=== PATIENT | male | born 1950 | race Caucasian/White ===

== ENCOUNTER 2018-10-05 08:30 | Inpatient (IN) ==
--- NOTE | 2018-10-05 08:50 | Anesthesia Evaluation PreOp ---
Date of Encounter: 10/05/18 Time of Encounter: 08:48 - Past History Planned Operation: Robotic Lap. [place]. Cardiac History: HTN, Hyperlipidemia Pulmonary History: Smoker BASKETBALL COMMENTATOR History: Other (Schizophrenia) Other Medical History: Denies Any Significant HX Anesthesia History: No Prior Anesthetic Complications, Past Anesthesia (tonsillectomy) Alcohol Use: rarely, occasionally Drug use: marijuana Medications and Allergies Atorvastatin [Lipitor] 40 mg PO HS 08/02/18 [History] Carbamide Peroxide [Ear Drops] 4 drp BOTH EARS AD 08/02/18 [History] Hydrochlorothiazide [Microzide] 12.5 mg PO DAILY 08/02/18 [History] Ketotifen Fumarate [Zaditor] 1 drp BOTH EYES BID 08/02/18 [History] LORazepam [Ativan] 0.5 mg PO DAILY 08/02/18 [History] Perphenazine 16 mg PO BID 08/02/18 [History] RisperiDONE MICROSPHERES [RisperDAL CONSTA] 25 mg IM Q14D 08/02/18 [History] risperiDONE [Risperdal] 2 mg PO HS 08/02/18 [History] Acetaminophen [Tylenol 8 Hour] 650 mg PO Q6H PRN #30 tablet.er 08/03/18 [Rx] Allergy/AdvReac Type Severity Reaction Status Date / Time No Known Allergies Allergy Verified 09/24/18 13:51 - Meds/Allergy Pre-op Review Medications Reviewed: Yes Allergies Reviewed: Yes Beta Blockers on Current Med List: No Anesthesia Results - Labs Laboratory Tests 08/02/18 08/03/18 09/24/18 05:04 04:43 13:51 WBC 5.9 Hgb 13.5 Hct 41.2 Plt Count 257 INR 1.2 Sodium 136 Potassium Chloride 104 Carbon Dioxide 24 BUN 12 Creatinine 09/24/18 13:51 WBC Hgb Hct Plt Count INR Sodium Potassium 4.0 Chloride Carbon Dioxide BUN Creatinine 0.62 L - Imaging EKG: report reviewed ([facility]ADYCARDIA Electronically Signed On 09-25-2018 15:14:07 EDT by Ray Laurent) Anesthesia Exam O2 Sat Height 1.78 m Weight 88.904 kg O2 Sat by Pulse Oximetry 92 Vital Signs Temp Pulse Resp BP Pulse Ox 97.5 F L 72 18 152/90 92 10/05/18 08:51 10/05/18 08:51 10/05/18 08:51 10/05/18 08:51 10/05/18 08:51 NPO (# of Hours): > 8 hrs Pain Scale: 0 Pain Scale Used: Numeric (1 - 10) - HEENT Pupil (Motor): Pupils equal, EOMI Mallampati: III Teeth: Normal Oral Opening: Greater than 3 - BASKETBALL COMMENTATOR LOC: Oriented BASKETBALL COMMENTATOR Motor: Normal RUE, Normal LUE, Normal RLE, Normal LLE, Normal Face BASKETBALL COMMENTATOR Sensory: Normal: RUE, LUE, RLE, LLE, Face - Cardiac Rhythm: Regular Murmur: None JVD: No Carotid Bruit: No - Pulmonary Breath Sounds: bilateral Clear Respiratory Effort: Symmetrical Anesthesia Assess/Plan ASA Score: 2 Level of consciousness: Cooperative Anesthetic Plan: General Autologous Blood: Yes Monitoring Plan: Standard Monitors Recovery Plan: PACU
[2018-10-05] MEDS ORDERED: *HR* OxyCODONE Immed Rel 5 MG TABLET PO PRN (09:07)
[2018-10-05] MEDS ORDERED: *HR* Promethazine 25 MG/ML VIAL IVP PRN (09:07)
[2018-10-05] MEDS ORDERED: Ondansetron 4 MG/2 ML VIAL IVP ONE (09:07)
[2018-10-05] MEDS ORDERED: *HR* Labetalol 20 MG/4 ML SYRINGE IVP PRN (09:07)
[2018-10-05] MEDS ORDERED: *HR* HYDROmorphone (PF) 1 MG/ML SYRINGE IVP PRN (09:07)
[2018-10-05] MEDS ORDERED: Albuterol 2.5 MG/3 ML NEBULIZER IH ONE ×2 (09:07)
[2018-10-05] MEDS ORDERED: cefOXitin 2,000 MG in Water for inj. (sterile) 20 ML 20 ML IVP ONE (09:07)
[2018-10-05] MEDS ORDERED: Ringers Solution, Lactated 1,000 ML IVC SCH (09:15)
[2018-10-05] MEDS ORDERED: *HR* FentaNYL (PF) 100 MCG/2 ML VIAL ONE ×2 (09:47→11:51)
[2018-10-05] MEDS ORDERED: *HR* Propofol 200 MG/20 ML VIAL IVP ONE (09:47)
[2018-10-05] MEDS ORDERED: *HR* Rocuronium Bromide 50 MG/5 ML VIAL ONE ×2 (09:48→13:05)
[2018-10-05] MEDS ORDERED: Dexamethasone 4 MG/ML VIAL ONE ×2 (09:48→13:51)
[2018-10-05] MEDS ORDERED: Ondansetron 4 MG/2 ML VIAL ONE (09:48)
[2018-10-05] MEDS ORDERED: Lidocaine -MPF 2% 2 ML VIAL ONE (09:48)
[2018-10-05] MEDS ORDERED: Neostigmine Methylsulfate 3 MG/3 ML SYRINGE ONE (10:19)
--- NOTE | 2018-10-05 10:44 | General Surg History&Physical ---
Date of Encounter: 10/05/18 Time of Encounter: 10:42 Assessment and Plan (1) Perforation of gallbladder in cholecystitis Current Visit: Yes Status: Acute 68M with perforated cholecystitis s/p cholecystostomy tube; clinically feeling better; okay to proceed with surgery The assessment and plan as outlined above was discussed with the patient and/or family members who expressed understanding and agreement. All questions were answered. History of Present Illness Chief complaint: perforated cholecystitis HPI: Mr. Tang is a 68 year old male who perforated gallbladder s/p cholecystostomy tube placement. He is doing well after without any reports of pain, having normal bowel function and diet. No reports of fevers, chills, nausea, vomiting nor other systemic symptoms Past Med Surg Social Fam HX - Past Medical History Medical history: hypertension, other Additional medical history: cholecystitis, unspecified. smoking CIGARETTES AND CIGARS (STARTED SMOKING AGE OF MID-30'S). DAILY marijuana use. hypercholesterolemia Psychiatric history: schizophrenia - Past Surgical History Surgical History: cholecystectomy, sinus surgery, tonsillectomy Additional surgical history: 10/05/18 [facility] W/JAELYN DRAIN REMOVAL @[facility] W/DR CALDERON - Social History Smoking Status: Current every day smoker Packs per day: 1 Smokeless Tobacco Status: No Alcohol use: none Drug use: marijuana - Family History Mother Living Status: Father Living Status: Medications and Allergies Atorvastatin [Lipitor] 40 mg PO HS 08/02/18 [History] Carbamide Peroxide [Ear Drops] 4 drp BOTH EARS AD 08/02/18 [History] Hydrochlorothiazide [Microzide] 12.5 mg PO DAILY 08/02/18 [History] Ketotifen Fumarate [Zaditor] 1 drp BOTH EYES BID 08/02/18 [History] LORazepam [Ativan] 0.5 mg PO DAILY 08/02/18 [History] Perphenazine 16 mg PO BID 08/02/18 [History] RisperiDONE MICROSPHERES [RisperDAL CONSTA] 25 mg IM Q14D 08/02/18 [History] risperiDONE [Risperdal] 2 mg PO HS 08/02/18 [History] Acetaminophen [Tylenol 8 Hour] 650 mg PO Q6H PRN #30 tablet.er 08/03/18 [Rx] Allergy/AdvReac Type Severity Reaction Status Date / Time No Known Allergies Allergy Verified 10/05/18 09:38 Review of Systems All systems PM: 12 point ROS negative besides HPI findings General Surgery Exam Initial Vital Signs Temp Pulse Resp BP Pulse Ox 97.5 F L 72 18 152/90 92 10/05/18 08:51 10/05/18 08:51 10/05/18 08:51 10/05/18 08:51 10/05/18 08:51 - General physical appearance no distress - Eyes PERRL, normal ocular movement - ENT normocephalic - Neck trachea midline, no lymphadectomy - Respiratory normal expansion, normal respiratory effort - Cardiovascular Cardiovascular exam: Present: RRR - Abdomen Abdomen general surgery: Present: soft, non tender - Integumentary Integumentary general surgery: Present: warm and dry, no abnormal pigmentation - Neurologic Present: CN 2-12 grossly intact - Musculoskeletal Present: normal posture - Psychiatric Psychiatric general surgery: Present: A&Ox3 Results - Labs All other labs normal.
[2018-10-05] MEDS ORDERED: Isovue-300 50 ML VIAL ONE (10:51)
[2018-10-05] MEDS ORDERED: CefOXitin 2,000 MG VIAL ONE ×2 (11:46→13:31)
[2018-10-05] MEDS ORDERED: Acetaminophen IV 1,000 MG/100 ML INFUS..BTL ONE (12:19)
[2018-10-05] MEDS ORDERED: *HR* HYDROMORPHONE 2 MG/ML VIAL ONE (12:36)
[2018-10-05] MEDS ORDERED: ROPIVACAINE/PF/NS SYRINGE INTRAART ONE ×2 (13:18→13:50)
[2018-10-05] MEDS ORDERED: SUGAMMADEX SODIUM 500 MG/5 ML VIAL IV ONE (14:18)
--- NOTE | 2018-10-05 15:00 | Anesthesia Procedures ---
Date of Encounter: 10/05/18 Time of Encounter: 14:30 Procedures: Anesthesia - Nerve Block Procedure Date: 10/05/18 Time: 14:30 Allergies/Adv Reactions: Allergies No Known Allergies Allergy (Verified 10/05/18 09:38) Pre-op Diagnosis: perforated gallbladder Surgical Procedure: open cholecystectomy Checklist: Correct Patient Identifier, Correct procedure, History checked Monitor Applied: EKG, BP, Pulse Oximetry Supplemental Oxygen via Nasal Cannula (L/min): 3 (under general anesthesia) Sedation: Versed (mg): 0 (under general anesthesia see record) Indication: Post Op Analgesia Pre-op Neuro Deficits: No Block Type: Other (bilateral TAP blocks and right subcostal TAP block) Catheter placed: No Sterile Technique: Yes Ultrasound used: Yes Anatomy identified: Yes Visual spread of Local: Yes Blood on Needle Aspiration: No Smooth Injection of Local: Yes Pain with Injection of Local: No Prep: Betadine Needle: 21 x 100 mm Stimuplex Local: Ropivacaine (0.25% 20ml in each site with 4 mg decadron in each) Volume (cc): 60 Number of Attempts: 1 Complications: None/effective block Vitals: see anesthesia record
--- NOTE | 2018-10-05 15:03 | Operative Note ---
Date of procedure: 10/05/18 Pre-op diagnosis: perforated cholecystitis Post-op diagnosis: same Procedure: robotic converted to open cholecystectomy intraoperative cholangiogram Implants: 19fr evelia drain Complications: none Anesthesia: GETA Surgeon: Bandar Lin Was there an residential real estate assistant present: Yes Pea Viner Mechanic: Ann Andre Pea Viner Mechanic Other: kitty villegas Estimated blood loss (cc): 30 Specimen: gallbladder, abscess wall Condition: stable Disposition: PACU Procedure in Detail: The patient was brought into the operating room suite and was placed in the supine position. Mechanical DVT prophylaxis was applied. A time-in was conducted. The patient underwent smooth induction of anesthesia. Preoperative antibiotics were given. The patient was prepped and draped in the usual fashion. A time-out was held identifying the correct patient, pathology, and procedure. Everyone was in agreement and we began the procedure. Incision to Dissection I started by creating a 12mm supraumbilical incision. Via open Carmina technique I did enter into the abdomen. I inserted the 12mm trocar followed by the 30 degree camera, ensured that I did not cause intraabdominal injury upon entry, and quickly identified the gallbladder. I created a 5mm incisions one handbreadth to the left and right of the umbilical incision and an residential real estate assistant port along the R anterior axillary line. I then docked the robot in the usual fashion. Using laparoscopic graspers I managed to elevate the gallbladder above the liver. At the Console I grasp the edge of the gallbladder to retract laterally. It should be stated that there was significant inflammation. The cholecystostomy tube was dislodged and discovered to be so before operating, likely before arrival for surgery. The omentum, hepatic flexure and the duodenum were heavily involved and there was a significant amount of time (at least 30 minutes) dedicated to lysing adhesions. All planes were obliterated and the tissue was very friable, so there was a lot of blood obscuring my view. During my dissection, I saw what I believed to be the infundibulum. Directly abutting it appeared to be the common bile but with no obvious plane to separate the two. I created an incision on the gallbladder wall above what was believed to be infundibulum. I attempted a cholangiogram through it, but was unable to get contrast to flow in the correct direction. My cholangiogram was not helpful. The decision was made at this point to convert to open. Open I created an incision 2 fingerbreadths below the right costal margin, dissected through the subcutaneous layer, through the fascia, muscles, and posterior fascia until i entered the abdomen. I then placed the book darell self retained and the associated retractors. I utilized the top down approach to dissect the gallbladder off the liver bed. I entered into the lumen (again the planes were obliterated) and used my finger to palpate. what was clear with exam was that 1.) I did correctly identify the infundibulum and 2.) that was the common bile duct directly abutting it. I was able to create a plane, but with very little space. I decided to staple across the infundibulum. However, with a little more dissection i was able to dissect the rind off of the gallbplladder and identify the cystic duct. This structure was ligated and the specimen rem rohit. I then placed surgiseal in the surgial bed, placed a 19fr evelia drain within the gallbladder fossa and anchored it to the skin, i irrigated the abdomen, and closed the abdomen using looped PDS. I used vicryl to close the subcutaneous tissue and angela for the skin. the patient tolerated the procedure well and was escorted to PACu in stable condition.
--- NOTE | 2018-10-05 16:23 | Anesthesia Evaluation Post Op ---
Date of Encounter: 10/05/18 Time of Encounter: 16:22 - Vital Signs Vital Signs: Vital Signs/O2 Sat, Most Current Temp Pulse Resp BP Pulse Ox 98.0 F 63 16 165/88 94 10/05/18 15:46 10/05/18 16:06 10/05/18 16:06 10/05/18 16:06 10/05/18 16:06 - Lungs Lungs: Clear Ascult./Percussion - Airway Airway: Non-obstructed - Cardiovascular Regular Rate - Mental Status Mental Status: Alert & Oriented, Answers Appropriately, Asleep with brisk response to light stimulation - Pain Pain Scale used: Numeric (1 - 10) (tolerale) - Nausea Vomiting Nausea Vomiting: Not Present - Hydration Hydration: Tolerates oral liquids - Discharge PostOp Status: Transfer Patient to floor
[2018-10-05] MEDS ORDERED: Ondansetron 4 MG/2 ML VIAL IVP PRN (17:27)
[2018-10-05] MEDS: risperiDONE 1 MG TABLET PO SCH (21:30)
[2018-10-05] MEDS: KETOTIFEN FUMARATE OP SCH (21:30)
[2018-10-05] MEDS: Perphenazine 8 MG TABLET PO SCH (21:30)
[2018-10-05] MEDS: Ringers Solution, Lactated 1,000 ML IVC SCH (22:56)
[2018-10-06 02:44] LABS: Basophils % 0.1 %; Hematocrit 39.1 % (37.5-50.1); Hemoglobin 13.1 g/dL (12.9-16.9); Immature Granulocytes % 0.5 % (0-4); Lymphocytes # 0.5 K/mcL (0.6-4.6); Lymphocytes % 3.8 %; Mean Corpuscular HGB Conc 33.5 g/dL (31.6-35.5); Mean Corpuscular Hemoglobin 28.2 pg (28.0-33.3); Mean Corpuscular Volume 84.3 fL (83.0-100.0); Mean Platelet Volume 10.1 fL (9.4-12.4); Monocytes # 0.5 K/mcL (0.0-1.3); Neutrophils # 10.9 K/mcL (1.6-8.9); Platelet Count 202 K/mcL (140-400); Red Blood Count 4.64 M/mcL (4.19-5.50); Red Cell Distribution Width 13.7 % (11.5-14.5); Segmented Neutrophils % 91.6 %
[2018-10-06] MEDS: *HR* Enoxaparin 40 MG/0.4 ML SYRINGE SQ SCH (05:04)
[2018-10-06] MEDS: *HR* LORazepam 0.5 MG TABLET PO SCH (07:44)
[2018-10-06] MEDS: Perphenazine 8 MG TABLET PO SCH ×2 (07:44→20:43)
[2018-10-06] MEDS: Ringers Solution, Lactated 1,000 ML IVC SCH ×2 (07:44→16:03)
[2018-10-06] MEDS: hydroCHLOROthiazide 25 MG TABLET PO SCH (07:44)
[2018-10-06] MEDS ORDERED: Carbamide Peroxide 150 DROP/15 ML BOTTLE BOTH EARS PRN (09:00)
--- NOTE | 2018-10-06 11:56 | AcuteCareSurgery Progress Note ---
<Alfie Carreon N - Last Filed: 10/06/18 12:11> Date of Encounter: 10/06/18 Time of Encounter: 10:15 - Assessment and Plan (1) Perforation of gallbladder in cholecystitis Current Visit: Yes Status: Acute 68-year-old male with history of perforated cholecystitis with cholecystostomy tube who is POD #1 from robotic cholecystectomy which was converted to open -Continue clear liquid diet today -Pain management with sublingual oxycodone and sublingual morphine -IV fluids -Zofran for nausea -Encourage incentive spirometry and out of bed to chair -Daily bandage changes and JAELYN drain care Subjective Narrative: 68-year-old male admitted to the hospital with perforated cholecystitis and is status post day 1 from robotic cholecystectomy which was converted to open. Patient complains of abdominal pain in the right upper quadrant that is slightly improved from yesterday. Objective Vital Signs - Last 8 Hours Temp Pulse Resp BP Pulse Ox 10/06/18 10:30 98.0 F 58 18 137/67 95 10/06/18 07:04 98.0 F 83 16 138/68 98 10/06/18 05:49 95 10/06/18 04:17 131/66 Intake and Output 10/05/18 10/06/18 10/06/18 23:59 07:59 15:59 Intake Total 1450 / 1470 2100 / 2700 600 / 2700 Output Total 320 / 350 300 / 740 440 / 740 Balance 1130 / 1120 1800 / 1960 160 / 1960 Intake: IV Fluids 1000 / 1020 1000 / 1000 Lactated Ringers 1,000 ML @ 100 1000 / 1000 1000 / 1000 mls/hr IVC .Q10H [facility] Rx#: [id number] Oral 450 / 450 1100 / 1700 600 / 1700 Output: Urine 300 / 300 300 / 700 400 / 700 Wound Drainage 20 / 20 0 / 40 40 / 40 Right LQ 20 / 20 0 / 40 40 / 40 Other: Meal BREAKFAST CLEAR Percent of Meal Consumed 0% Weight 97 kg Blood Glucose* 118 123 125 Patient Weight 10/06/18 23:59 Weight 97 kg - General physical appearance well developed, well nourished - Eyes PERRL, normal ocular movement - ENT normal pinna, normal nares - Neck Neck exam: trachea midline, no venous distension - Respiratory normal expansion, normal respiratory effort - Cardiovascular Cardiovascular exam: Present: RRR - Abdomen Abdomen: Present: tender Abdominal Tenderness: RUQ Additional Comments: Surgical incision site is bandaged and there is appropriate post surgical tenderness. JAELYN drain in place draining sanguinous material. - Labs 10/06/18 01:21 Consult Discharge Plan - Plan Referrals: Cata Houston, BABY REGISTRY SALES CONSULTANT [Advanced Practice Nurse] - 10/19/18 10:00 am [facility] Provider[facility] - <José Luis Chung Michelle - Last Filed: 10/07/18 06:30> Date of Encounter: 10/06/18 Objective Vital Signs - Last 8 Hours Temp Pulse Resp BP Pulse Ox 10/07/18 05:11 98.1 F 68 16 167/71 93 10/07/18 03:04 98.0 F 69 18 175/72 93 Intake and Output 10/06/18 10/06/18 10/07/18 15:59 23:59 07:59 Intake Total 1120 / 4220 1000 / 4220 960 / 960 Output Total 970 / 2640 1370 / 2640 350 / 350 Balance 150 / 1580 -370 / 1580 610 / 610 Intake: IV Fluids 1000 / 2000 960 / 960 Lactated Ringers 1,000 ML @ 100 1000 / 2000 960 / 960 mls/hr IVC .Q10H [facility] Rx#: [id number] Oral 1120 / 2220 0 / 0 Output: Urine 860 / 2510 1350 / 2510 350 / 350 Wound Drainage 110 / 130 20 / 130 0 / 0 Right LQ 110 / 130 20 / 130 0 / 0 Other: Meal BREAKFAST CLEAR Percent of Meal Consumed 0% Weight 98.2 kg Blood Glucose* 125 98 Patient Weight 10/07/18 23:59 Weight 98.2 kg - Labs 10/06/18 01:21 - Attending Attestation I examined this patient and my medical decision-making was reviewed with the Resident Physician. I agree with the documented findings, disposition and treatment plan as described except to the extent set forth below. I reviewed the above assessment and evaluation and agree with the above plan.
[2018-10-06] MEDS ORDERED: MORPHINE SUL Oral CONC 10 MG/0.5 ML ORAL.SYG SL PRN (12:03)
[2018-10-06] MEDS: KETOTIFEN FUMARATE OP SCH ×2 (16:03→20:45)
[2018-10-06] MEDS: risperiDONE 1 MG TABLET PO SCH (20:44)
[2018-10-06] MEDS: OXYCODONE Oral CONC 10 MG/0.5 ML ORAL.SYG SL PRN (20:44)
[2018-10-07] MEDS: OXYCODONE Oral CONC 10 MG/0.5 ML ORAL.SYG SL PRN ×2 (03:25→21:19)
[2018-10-07] MEDS: Ringers Solution, Lactated 1,000 ML IVC SCH (03:26)
[2018-10-07] MEDS: *HR* Enoxaparin 40 MG/0.4 ML SYRINGE SQ SCH (05:16)
[2018-10-07] MEDS: hydroCHLOROthiazide 25 MG TABLET PO SCH (07:44)
[2018-10-07] MEDS: *HR* LORazepam 0.5 MG TABLET PO SCH (07:45)
[2018-10-07] MEDS: KETOTIFEN FUMARATE OP SCH ×2 (07:45→21:19)
[2018-10-07] MEDS: Perphenazine 8 MG TABLET PO SCH ×2 (07:45→21:18)
[2018-10-07 10:03] LABS: Basophils % 0.2 %; Hematocrit 39.1 % (37.5-50.1); Hemoglobin 12.9 g/dL (12.9-16.9); Immature Granulocytes % 0.4 % (0-4); Lymphocytes # 0.9 K/mcL (0.6-4.6); Lymphocytes % 7.3 %; Mean Corpuscular Hemoglobin 28.2 pg (28.0-33.3); Mean Corpuscular Volume 85.6 fL (83.0-100.0); Mean Platelet Volume 9.7 fL (9.4-12.4); Monocytes # 0.9 K/mcL (0.0-1.3); Monocytes % 7.8 %; Neutrophils # 9.8 K/mcL (1.6-8.9); Platelet Count 177 K/mcL (140-400); Red Blood Count 4.57 M/mcL (4.19-5.50); Red Cell Distribution Width 13.8 % (11.5-14.5); Segmented Neutrophils % 84.3 %
[2018-10-07 10:16] LABS: Alanine Aminotransferase 15 Units/L (7-52); Albumin 3.7 g/dL (3.5-5.7); Albumin/Globulin Ratio 1.7 (1.1-2.2); Alkaline Phosphatase 43 Units/L (34-104); Aspartate Amino Transferase 24 Units/L (13-39); BUN/Creatinine Ratio 17 (6-26); Bilirubin,Total 0.7 mg/dL (0.3-1.0); Blood Urea Nitrogen 11 mg/dL (8-23); Calcium 8.8 mg/dL (8.6-10.3); Carbon Dioxide 23 mEq/L (23-29); Chloride 97 mEq/L (98-107); Globulin 2.2 g/dL (2.4-3.5); Glucose 173 mg/dL (70-105); Osmolality,Calculated 280 (280-300); Potassium 3.4 mEq/L (3.5-5.1); Sodium 133 mEq/L (136-145); Total Protein 5.9 g/dL (6.4-8.9); eGFR For Non-African Americans > 60 (> 60)
--- NOTE | 2018-10-07 10:48 | AcuteCareSurgery Progress Note ---
<Alfie Carreon N - Last Filed: 10/07/18 14:09> Date of Encounter: 10/07/18 Time of Encounter: 10:46 - Assessment and Plan (1) Perforation of gallbladder in cholecystitis Current Visit: Yes Status: Acute 68-year-old male POD #2 from robotic and open cholecystectomy for perforated gallbladder and cholecystitis -Advanced diet to full liquids -Pain management with sublingual oxycodone and sublingual morphine -Zofran for nausea -Encourage incentive spirometry and out of bed to chair -Daily bandage changes and JAELYN drain care -PT/OT consult placed (2) Pneumonia Current Visit: Yes Status: Acute -Patient has a progressively worsening nonproductive cough -O2 demand slightly increased -Has mild leukocytosis, but otherwise hemodynamically stable -Obtained chest x-ray with findings significant for airspace opacity at the right lung base, likely related to pneumonia -Obtained blood cultures -We will consult medical team for recommendations -Consult respiratory for pulmonary toilet Qualifiers: Pneumonia type: due to unspecified organism Laterality: right Lung location: lower lobe of lung Qualified Code(s): J18.1 - Lobar pneumonia, unspecified organism Subjective Narrative: Patient seen and examined at bedside this morning. He is status POD #2 from robotic and open cholecystectomy. Complains of a cough that is nonproductive and has coarse breath sounds on exam. Objective Vital Signs - Last 8 Hours Temp Pulse Resp BP Pulse Ox 10/07/18 07:19 98.6 F 72 18 153/70 90 10/07/18 05:11 98.1 F 68 16 167/71 93 10/07/18 03:04 98.0 F 69 18 175/72 93 Intake and Output 10/06/18 10/07/18 10/07/18 23:59 07:59 15:59 Intake Total 1000 / 4220 960 / 960 Output Total 1370 / 2640 720 / 720 Balance -370 / 1580 240 / 240 Intake: IV Fluids 1000 / 2000 960 / 960 Lactated Ringers 1,000 ML @ 100 1000 / 2000 960 / 960 mls/hr IVC .Q10H [facility] Rx#: [id number] Oral 0 / 0 Output: Urine 1350 / 2510 700 / 700 Wound Drainage 20 / 130 20 / 20 Right LQ 20 / 130 20 / 20 Other: Weight 98.2 kg Blood Glucose* 98 119 Patient Weight 10/07/18 23:59 Weight 98.2 kg - General physical appearance well developed, well nourished - Eyes PERRL, normal ocular movement - ENT normal pinna, normal nares - Neck Neck exam: trachea midline, no venous distension - Respiratory other (Coarse rhonchorous breath sounds) - Cardiovascular Cardiovascular exam: Present: RRR. Absent: murmurs - Abdomen Abdomen: Present: bowel sounds present, tender (Appropriate postsurgical tenderness. JAELYN drain in place draining sanguinous fluid.) - Labs 10/07/18 09:46 10/07/18 09:46 Diabetes panel 10/07/18 Range/Units 09:46 Sodium 133 L (136-145) mEq/L Potassium 3.4 L (3.5-5.1) mEq/L Chloride 97 L (98-107) mEq/L Carbon Dioxide 23 (23-29) mEq/L BUN 11 (8-23) mg/dL Creatinine 0.65 L (0.70-1.30) mg/dL Glucose 173 H (70-105) mg/dL Calcium 8.8 (8.6-10.3) mg/dL AST 24 (13-39) Units/L ALT 15 (7-52) Units/L Alkaline Phosphatase 43 (34-104) Units/L Albumin 3.7 (3.5-5.7) g/dL Calcium panel 10/07/18 Range/Units 09:46 Calcium 8.8 (8.6-10.3) mg/dL Albumin 3.7 (3.5-5.7) g/dL Pituitary panel 10/07/18 Range/Units 09:46 Sodium 133 L (136-145) mEq/L Potassium 3.4 L (3.5-5.1) mEq/L Chloride 97 L (98-107) mEq/L Carbon Dioxide 23 (23-29) mEq/L BUN 11 (8-23) mg/dL Creatinine 0.65 L (0.70-1.30) mg/dL Glucose 173 H (70-105) mg/dL Calcium 8.8 (8.6-10.3) mg/dL Adrenal panel 10/07/18 Range/Units 09:46 Sodium 133 L (136-145) mEq/L Potassium 3.4 L (3.5-5.1) mEq/L Chloride 97 L (98-107) mEq/L Carbon Dioxide 23 (23-29) mEq/L BUN 11 (8-23) mg/dL Creatinine 0.65 L (0.70-1.30) mg/dL Glucose 173 H (70-105) mg/dL Calcium 8.8 (8.6-10.3) mg/dL Total Bilirubin 0.7 (0.3-1.0) mg/dL AST 24 (13-39) Units/L ALT 15 (7-52) Units/L Alkaline Phosphatase 43 (34-104) Units/L Albumin 3.7 (3.5-5.7) g/dL Consult Discharge Plan - Plan Referrals: Cata Houston, BUSINESS PROJECT MANAGER [Advanced Practice Nurse] - 10/19/18 10:00 am [facility] - <José Luis Chung - Last Filed: 10/07/18 18:36> Date of Encounter: 10/07/18 Objective Vital Signs - Last 8 Hours Temp Pulse Resp BP Pulse Ox 10/07/18 17:05 98.5 F 10/07/18 12:38 98.9 F 67 19 163/66 94 Intake and Output 10/07/18 10/07/18 10/07/18 07:59 15:59 23:59 Intake Total 960 / 1040 80 / 1040 Output Total 720 / 985 265 / 985 Balance 240 / 55 -185 / 55 Intake: IV Fluids 960 / 960 Lactated Ringers 1,000 ML @ 100 960 / 960 mls/hr IVC .Q10H [facility] Rx#: [id number] Oral 0 / 80 80 / 80 Output: Urine 700 / 950 250 / 950 Wound Drainage 15 Right LQ Other: Meal Lunch # Bowel Movements 0 Weight 98.2 kg Blood Glucose* 119 109 113 Patient Weight 10/07/18 23:59 Weight 98.2 kg - Labs 10/07/18 09:46 10/07/18 09:46 Diabetes panel 10/07/18 Range/Units 09:46 Sodium 133 L (136-145) mEq/L Potassium 3.4 L (3.5-5.1) mEq/L Chloride 97 L (98-107) mEq/L Carbon Dioxide 23 (23-29) mEq/L BUN 11 (8-23) mg/dL Creatinine 0.65 L (0.70-1.30) mg/dL Glucose 173 H (70-105) mg/dL Calcium 8.8 (8.6-10.3) mg/dL AST 24 (13-39) Units/L ALT 15 (7-52) Units/L Alkaline Phosphatase 43 (34-104) Units/L Albumin 3.7 (3.5-5.7) g/dL Calcium panel 10/07/18 Range/Units 09:46 Calcium 8.8 (8.6-10.3) mg/dL Albumin 3.7 (3.5-5.7) g/dL Pituitary panel 10/07/18 Range/Units 09:46 Sodium 133 L (136-145) mEq/L Potassium 3.4 L (3.5-5.1) mEq/L Chloride 97 L (98-107) mEq/L Carbon Dioxide 23 (23-29) mEq/L BUN 11 (8-23) mg/dL Creatinine 0.65 L (0.70-1.30) mg/dL Glucose 173 H (70-105) mg/dL Calcium 8.8 (8.6-10.3) mg/dL Adrenal panel 10/07/18 Range/Units 09:46 Sodium 133 L (136-145) mEq/L Potassium 3.4 L (3.5-5.1) mEq/L Chloride 97 L (98-107) mEq/L Carbon Dioxide 23 (23-29) mEq/L BUN 11 (8-23) mg/dL Creatinine 0.65 L (0.70-1.30) mg/dL Glucose 173 H (70-105) mg/dL Calcium 8.8 (8.6-10.3) mg/dL Total Bilirubin 0.7 (0.3-1.0) mg/dL AST 24 (13-39) Units/L ALT 15 (7-52) Units/L Alkaline Phosphatase 43 (34-104) Units/L Albumin 3.7 (3.5-5.7) g/dL - Attending Attestation I examined this patient and my medical decision-making was reviewed with the Resident Physician. I agree with the documented findings, disposition and treatment plan as described except to the extent set forth below. I personally reviewed the above mentioned assessment and evaluation and agree with the above plan. Will encourage out of bed to chair. Will advance to full liquids. Consult hospitalist due to concern regarding pneumonia and recommendations for antibiotics. Await return of bowel function.
[2018-10-07] MEDS ORDERED: Azithromycin 500 MG in D5% in Water 250 ML IVPB SCH (12:00)
--- NOTE | 2018-10-07 12:10 | Internal Medicine Consult Note ---
Date of Encounter: 10/07/18 Time of Encounter: 12:14 - Assessment and Plan (1) Pneumonia Current Visit: Yes Status: Acute Assessment and plan: of unknown organism. 10/07/18 CXR inserting for RLL pneumonia. Concern for healthcare associated as he has been in the hospital for over 48 hours however able to ascertain if he possibly had underlying pneumonia at time of admission. Start IV ceftriaxone and azithromycin. Respiratory PCR and urinary antigens pending. Qualifiers: Pneumonia type: due to unspecified organism Laterality: right Lung location: lower lobe of lung Qualified Code(s): J18.1 - Lobar pneumonia, un specified organism (2) Perforation of gallbladder in cholecystitis Current Visit: Yes Status: Acute Assessment and plan: s/p robotic and open cholecystectomy for perforated gallbladder and cholecystitis on 10/05/[address] Calderon. Management per primary including pain control, diet and DVT prophylaxis (3) HTN (hypertension) Current Visit: Yes Status: Acute Assessment and plan: per hx. BP variable. Elevated at times, possibly secondary to acute pain. Continue home BP medication. Add PRN IV hydralazine Qualifiers: Hypertension type: essential hypertension Qualified Code(s): I10 - Essential (primary) hypertension (4) Schizophrenia Current Visit: No Status: Chronic Assessment and plan: per hx. symptoms appear to be controlled. Continue home medication regimen. Qualifiers: Schizophrenia type: unspecified Qualified Code(s): F20.9 - Schizophrenia, unspecified (5) DVT prophylaxis Current Visit: No Status: Acute Assessment and plan: lovenox - Time Spent With Patient Total time spent is greater than 50% in coordination of care (as documented) at patient's floor/unit and/or counseling patient: Internal Medicine - CN: HPI - Data of Consult Consult date: 10/07/18 Requesting Physician: Bandar Calderon MD - Consult Narrative Reason for consult: Medical management, pneumonia History of present illness: Mr. Tang is a 68 year old male with PMH schizophrenia and cholecystitis s/p robotic cholecystectomy which was converted to open on 10/04/18. Angelye was consulted for medical management of newly discovered pneumonia. Information obtained from chart review and patient report. He is sleepy and drowsy and bed and says he does not feel well. He does have a nonproductive cough. Feels a little short of breath that time. No fevers or chills that he is aware of. No sick contacts. He does have some abdominal discomfort secondary to surgical incisions. Past Med Surg Social Fam HX - Past Medical History Medical history: hypertension, other Additional medical history: cholecystitis, unspecified. smoking CIGARETTES AND CIGARS (STARTED SMOKING AGE OF MID-30'S). DAILY marijuana use. hypercholesterolemia Psychiatric history: schizophrenia - Past Surgical History Surgical History: cholecystectomy, sinus surgery, tonsillectomy Additional surgical history: 10/05/18 [facility] W/JAELYN DRAIN REMOVAL @[facility] W/DR CALDERON - Social History Smoking Status: Current every day smoker Packs per day: 1 Smokeless Tobacco Status: No Alcohol use: none Drug use: marijuana - Family History Mother Living Status: Father Living Status: All systems: reviewed and no additional remarkable complaints except as stated (A 12 point review of system was completed and negative unless otherwise noted in history of present illness) Internal Medicine - CN: Meds Atorvastatin [Lipitor] 40 mg PO HS 08/02/18 [History] Carbamide Peroxide [Ear Drops] 4 drp BOTH EARS AD 08/02/18 [History] Hydrochlorothiazide [Microzide] 12.5 mg PO DAILY 08/02/18 [History] Ketotifen Fumarate [Zaditor] 1 drp BOTH EYES BID 08/02/18 [History] LORazepam [Ativan] 0.5 mg PO DAILY 08/02/18 [History] Perphenazine 16 mg PO BID 08/02/18 [History] RisperiDONE MICROSPHERES [RisperDAL CONSTA] 25 mg IM Q14D 08/02/18 [History] risperiDONE [Risperdal] 2 mg PO HS 08/02/18 [History] Acetaminophen [Tylenol 8 Hour] 650 mg PO Q6H PRN #30 tablet.er 08/03/18 [Rx] Allergy/AdvReac Type Severity Reaction Status Date / Time No Known Allergies Allergy Verified 10/05/18 09:38 Hospitalist - CN: Exam - Constitutional Vitals: Temp Pulse Resp BP Pulse Ox 98.6 F 72 18 153/70 90 10/07/18 07:19 10/07/18 07:19 10/07/18 07:19 10/07/18 07:19 10/07/18 07:19 General appearance IM: Present: mild distress, A&O X 3 Exam: . - Head Head exam: Present: atraumatic, normal inspection, normocephalic - Eye Eye exam: Present: EOMI, normal appearance, PERRL - ENT ENT exam: Present: mucous membranes moist, normal exam, normal external ear exam, normal oropharynx - Neck Neck exam general surgery: Present: full ROM, normal inspection - Respiratory Respiratory exam: Present: rales, rhonchi - Cardiovascular Cardiovascular exam IM: Present: RRR - GI/Abdominal GI/Abdominal exam IM: Present: diminished bowel sounds, tenderness Additional comments: s/p cholecystectomy site with dressings clean, dry, intact. - exam: Present: normal inspection - Extremities Exam Extremities exam IM: Present: full ROM, normal inspection - Expanded Lower Extremities Exam Hip exam: Present: full ROM - Back Exam Back exam: Present: full ROM - Neurological Exam Neurological exam: Present: CN II-XII intact, oriented X3 Internal Medicine - CN: Reslt - Labs CBC & Chem 7: 10/07/18 09:46 10/07/18 09:46 Labs: Short CBC 10/07/18 Range/Units 09:46 WBC 11.7 H (4.3-11.1) K/mcL Hgb 12.9 (12.9-16.9) g/dL Hct 39.1 (37.5-50.1) % Plt Count 177 (140-400) K/mcL Neutrophils # 9.8 H (1.6-8.9) K/mcL BMP 10/07/18 09:46 Sodium 133 L Potassium 3.4 L Chloride 97 L Carbon Dioxide 23 BUN 11 Creatinine 0.65 L Glucose 173 H Calcium 8.8 Liver Function 10/07/18 Range/Units 09:46 Total Bilirubin 0.7 (0.3-1.0) mg/dL AST 24 (13-39) Units/L ALT 15 (7-52) Units/L Alkaline Phosphatase 43 (34-104) Units/L Albumin 3.7 (3.5-5.7) g/dL - Impressions Impressions Chest X-Ray 10/07/18 07:40 IMPRESSION: Airspace opacity at the right lung base, likely related to pneumonia. D/ / Neptali Domingo MD / Neptali Domingo MD Interpreting Provider: Neptali Domingo MD Consult Discharge Plan - Plan Referrals: Cata Houston, SHANE [Advanced Practice Nurse] - 10/19/18 10:00 am [facility] [[facility] Care Provider[facility] -
[2018-10-07] MEDS: cefTRIAXone 1,000 MG in Water for inj. (sterile) 20 ML 10 ML IVP SCH (12:45)
[2018-10-07 16:17] LABS: Adenovirus Not Detected (Not Detect); Bordetella Pertussis Not Detected (Not Detect); Chlamydophila pneumoniae Not Detected (Not Detect); Coronavirus 229E Not Detected (Not Detect); Coronavirus HKU1 Not Detected (Not Detect); Coronavirus NL63 Not Detected (Not Detect); Coronavirus OC43 Not Detected (Not Detect); Human Metapneumovirus Not Detected (Not Detect); Human Rhinovirus/Enterovirus Not Detected (Not Detect); Influenza A Subtype 2009 H1 Not Detected (Not Detect); Influenza A Untypeable Not Detected (Not Detect); Influenza B Not Detected (Not Detect); Mycoplasma pneumoniae Not Detected (Not Detect); Parainfluenza Virus 1 Not Detected (Not Detect); Parainfluenza Virus 2 Not Detected (Not Detect); Parainfluenza Virus 3 Not Detected (Not Detect); Parainfluenza Virus 4 Not Detected (Not Detect); Respiratory Syncytial Virus Not Detected (Not Detect)
[2018-10-07] MEDS: risperiDONE 1 MG TABLET PO SCH (21:18)
[2018-10-08] MEDS: *HR* Enoxaparin 40 MG/0.4 ML SYRINGE SQ SCH (05:32)
[2018-10-08] MEDS: OXYCODONE Oral CONC 10 MG/0.5 ML ORAL.SYG SL PRN ×2 (05:33→08:07)
[2018-10-08 05:44] LABS: Hematocrit 34.5 % (37.5-50.1); Hemoglobin 11.5 g/dL (12.9-16.9); Mean Corpuscular HGB Conc 33.3 g/dL (31.6-35.5); Mean Corpuscular Hemoglobin 28.2 pg (28.0-33.3); Mean Corpuscular Volume 84.6 fL (83.0-100.0); Mean Platelet Volume 10.4 fL (9.4-12.4); Platelet Count 168 K/mcL (140-400); Red Blood Count 4.08 M/mcL (4.19-5.50); Red Cell Distribution Width 13.6 % (11.5-14.5)
[2018-10-08 06:05] LABS: Alanine Aminotransferase 12 Units/L (7-52); Albumin 3.2 g/dL (3.5-5.7); Albumin/Globulin Ratio 1.5 (1.1-2.2); Alkaline Phosphatase 43 Units/L (34-104); Aspartate Amino Transferase 16 Units/L (13-39); BUN/Creatinine Ratio 18 (6-26); Bilirubin,Total 1.1 mg/dL (0.3-1.0); Blood Urea Nitrogen 10 mg/dL (8-23); Calcium 8.6 mg/dL (8.6-10.3); Carbon Dioxide 29 mEq/L (23-29); Chloride 99 mEq/L (98-107); Globulin 2.2 g/dL (2.4-3.5); Glucose 114 mg/dL (70-105); Osmolality,Calculated 280 (280-300); Potassium 3.5 mEq/L (3.5-5.1); Sodium 135 mEq/L (136-145); Total Protein 5.4 g/dL (6.4-8.9); eGFR For Non-African Americans > 60 (> 60)
[2018-10-08] MEDS: cefTRIAXone 1,000 MG in Water for inj. (sterile) 20 ML 10 ML IVP SCH (08:07)
[2018-10-08] MEDS: hydroCHLOROthiazide 25 MG TABLET PO SCH (08:07)
[2018-10-08] MEDS: *HR* LORazepam 0.5 MG TABLET PO SCH (08:07)
[2018-10-08] MEDS: KETOTIFEN FUMARATE OP SCH (08:09)
[2018-10-08] MEDS: Perphenazine 8 MG TABLET PO SCH ×2 (08:11→20:34)
--- NOTE | 2018-10-08 08:20 | General Surgery Progress Note ---
Date of Encounter: 10/08/18 Time of Encounter: 08:17 - Assessment and Plan (1) Perforation of gallbladder in cholecystitis Current Visit: Yes Status: Acute 68M pMH significant for HTN, psychiatric disorders who is now POD #3 s/p robotic converted to open cholecystectomy with IOC; non septic; HDS; tolerating FLD, pain controlled; now with pneumonia ADAT to reg diet cont with oxy for pain, added flexeril TID pulm toileting; appreciate recs from hospitalist; plan for CXR in AM of 10/09 OOBTC, IS usage cont with JAELYN drain cont home meds cont DVT prophylaxis Subjective Patient reports: no new complaints, feels better, still having pain, pain is less, tolerating liquids well, flatus, no bowel movement, afebrile Objective Vital Signs - Last 8 Hours Temp Pulse Resp BP Pulse Ox 10/08/18 07:47 93 10/08/18 07:08 98 F 65 20 163/83 93 10/08/18 03:46 98.8 F 66 18 154/63 91 Intake and Output 10/07/18 10/08/18 10/08/18 23:59 07:59 15:59 Intake Total 300 / 1340 1260 / 1270 10 / 1270 Output Total 410 / 1395 455 / 455 Balance -110 / -55 805 / 815 10 / 815 Intake: IV Fluids 1260 / 1270 10 / 1270 Lactated Ringers 1,000 ML @ 100 1000 / 1000 mls/hr IVC .Q10H [facility] Rx#: [id number] Rocephin 1,000 MG In Water for inj. (sterile) 10 ML @ 600 mls/ hr IVP DAILY [facility] Rx#:[id number] Zithromax 500 mg In Dextrose 5% 250 / 250 250 ML @ 252 mls/hr IVPB Q24H [facility] Rx#:[id number] Oral 300 / 380 Output: Urine 400 / 1350 450 / 450 Wound Drainage Right LQ Other: Meal Dinner Percent of Meal Consumed 85% Weight 98.1 kg Blood Glucose* 139 107 Patient Weight 10/08/18 23:59 Weight 98.1 kg - General physical appearance no distress - Respiratory normal expansion, normal respiratory effort - Cardiovascular Cardiovascular exam: Present: RRR - Abdomen Abdomen: Present: soft, tender (appropriately tender; non peritoneal) - Incision Incision: Present: clean and dry, intact - Neurologic CN 2-12 grossly intact - Psychiatric oriented to time, oriented to person, oriented to place - Labs 10/08/18 04:47 10/08/18 04:47 Diabetes panel 10/07/18 10/08/18 Range/Units 09:46 04:47 Sodium 133 L 135 L (136-145) mEq/L Potassium 3.4 L 3.5 (3.5-5.1) mEq/L Chloride 97 L 99 (98-107) mEq/L Carbon Dioxide 23 29 (23-29) mEq/L BUN 11 10 (8-23) mg/dL Creatinine 0.65 L 0.55 L (0.70-1.30) mg/dL Glucose 173 H 114 H (70-105) mg/dL Calcium 8.8 8.6 (8.6-10.3) mg/dL AST 24 16 (13-39) Units/L ALT 15 12 (7-52) Units/L Alkaline Phosphatase 43 43 (34-104) Units/L Albumin 3.7 3.2 L (3.5-5.7) g/dL Calcium panel 10/07/18 10/08/18 Range/Units 09:46 04:47 Calcium 8.8 8.6 (8.6-10.3) mg/dL Albumin 3.7 3.2 L (3.5-5.7) g/dL Pituitary panel 10/07/18 10/08/18 Range/Units 09:46 04:47 Sodium 133 L 135 L (136-145) mEq/L Potassium 3.4 L 3.5 (3.5-5.1) mEq/L Chloride 97 L 99 (98-107) mEq/L Carbon Dioxide 23 29 (23-29) mEq/L BUN 11 10 (8-23) mg/dL Creatinine 0.65 L 0.55 L (0.70-1.30) mg/dL Glucose 173 H 114 H (70-105) mg/dL Calcium 8.8 8.6 (8.6-10.3) mg/dL Adrenal panel 10/07/18 10/08/18 Range/Units 09:46 04:47 Sodium 133 L 135 L (136-145) mEq/L Potassium 3.4 L 3.5 (3.5-5.1) mEq/L Chloride 97 L 99 (98-107) mEq/L Carbon Dioxide 23 29 (23-29) mEq/L BUN 11 10 (8-23) mg/dL Creatinine 0.65 L 0.55 L (0.70-1.30) mg/dL Glucose 173 H 114 H (70-105) mg/dL Calcium 8.8 8.6 (8.6-10.3) mg/dL Total Bilirubin 0.7 1.1 H (0.3-1.0) mg/dL AST 24 16 (13-39) Units/L ALT 15 12 (7-52) Units/L Alkaline Phosphatase 43 43 (34-104) Units/L Albumin 3.7 3.2 L (3.5-5.7) g/dL Consult Discharge Plan - Plan Referrals: Cata Houston CNP [Advanced Practice Nurse] - 10/19/18 10:00 am [facility] [Primary Care Provider] -
--- NOTE | 2018-10-08 10:09 | Internal Med Progress Note ---
Hospitalist Progress Note - Encounter Date of Encounter: 10/08/18 Time of Encounter: 10:07 - Subjective Interval History: Patient seen and examined this morning at bedside. No acute overnight events. Patient afebrile and hemodynamically stable. Blood pressure slightly elevated. Complains of some abdominal soreness and coughing while using incentive spirometry. Denies significant shortness of breath. Denies urinary difficulties. - Exam Vitals: Temp Pulse Resp BP Pulse Ox 98 F 65 20 163/83 93 10/08/18 07:08 10/08/18 07:08 10/08/18 07:08 10/08/18 07:08 10/08/18 07:47 Exam: General: In no acute distress. flat affect Respiratory exam: no accessory muscle use. Diffuse rhonchi Rt>Lt. Cardiovascular exam: RRR, +S1, +S2. no murmur, gallop, rubs. GI/Abdominal exam: soft, no peritoneal signs. Surgical scar without signs of infection. Has JAELYN riri with serosanguis discharge. Extremities exam: no pedal edema, pulses palpable in b/l lower extremities. no calf tenderness Neurological exam: CN II-XII intact, AO X3, no focal deficits. Skin exam: No skin rash - Assessment and Plan (1) DVT prophylaxis Current Visit: No Status: Acute (2) Schizophrenia Current Visit: No Status: Chronic (3) Perforation of gallbladder in cholecystitis Current Visit: Yes Status: Acute (4) Pneumonia Current Visit: Yes Status: Acute (5) HTN (hypertension) Current Visit: Yes Status: Acute - Summary of Assessment and Plan Summary of Assessment and Plan: Assessment Perforation of gallbladder in cholecystitis Pneumonia HTN Schizophrenia DVT prophylaxis Plan - Status post robotic and open cholecystectomy for perforated gallbladder and cholecystitis on 10/05/18. Progressed to regular diet. Has JAELYN drain. Management per primary team. - Patient was started on ceftriaxone and azithromycin. Chest x-ray with right lower lobe pneumonia. Urine antigens negative. RIP negative. Would obtain MRS A. Would change antibiotic to Levaquin given recent antibiotic usage and hospitalization. Follow up blood cultures. We will obtain sputum cultures. - Continue incentive spirometry along with pain control per primary team. - Elevated blood pressure possibly secondary to pain. Current blood pressure acceptable. Continue hydrochlorothiazide and when necessary hydralazine. - Continue home medication for schizophrenia - On Lovenox for DVT prophylaxis. - Time Spent with Patient Total time spent is greater than 50% in coordination of care (as documented) at patient's floor/unit and/or counseling patient: Internal Medicine: Result - Labs CBC & Chem 7: 10/08/18 04:47 10/08/18 04:47 Labs: Short CBC 10/07/18 10/08/18 Range/Units 09:46 04:47 WBC 11.7 H 9.9 (4.3-11.1) K/mcL Hgb 12.9 11.5 L (12.9-16.9) g/dL Hct 39.1 34.5 L (37.5-50.1) % Plt Count 177 168 (140-400) K/mcL Neutrophils # 9.8 H (1.6-8.9) K/mcL BMP 10/07/18 10/08/18 09:46 04:47 Sodium 133 L 135 L Potassium 3.4 L 3.5 Chloride 97 L 99 Carbon Dioxide 23 29 BUN 11 10 Creatinine 0.65 L 0.55 L Glucose 173 H 114 H Calcium 8.8 8.6 Liver Function 10/07/18 10/08/18 Range/Units 09:46 04:47 Total Bilirubin 0.7 1.1 H (0.3-1.0) mg/dL AST 24 16 (13-39) Units/L ALT 15 12 (7-52) Units/L Alkaline Phosphatase 43 43 (34-104) Units/L Albumin 3.7 3.2 L (3.5-5.7) g/dL Consult Discharge Plan - Plan Referrals: Cata Houston, P[employer] SUPERVISOR [Advanced Practice Nurse] - 10/19/18 10:00 am [facility] [Primary Care Provider[facility] - (2) Schizophrenia Qualifiers: Schizophrenia type: unspecified Qualified Code(s): F20.9 - Schizophrenia, unspecified (4) Pneumonia Qualifiers: Pneumonia type: due to unspecified organism Laterality: right Lung location: lower lobe of lung Qualified Code(s): J18.1 - Lobar pneumonia, unspecified organism (5) HTN (hypertension) Qualifiers: Hypertension type: essential hypertension Qualified Code(s): I10 - Essential (primary) hypertension
--- NOTE | 2018-10-08 11:08 | General Surgery Progress Note ---
<Alfie Carreon N - Last Filed: 10/08/18 11:05> Date of Encounter: 10/06/18 Time of Encounter: 08:00 - Assessment and Plan (1) Perforation of gallbladder in cholecystitis Current Visit: Yes Status: Acute Below is the documentation from 10/06/18 to be recorded under the general surgery service rather than the acute care surgery service. 68-year-old male with history of perforated cholecystitis with cholecystostomy tube who is POD #1 on 10/06/2018 from robotic cholecystectomy which was converted to open -Continue clear liquid diet today -Pain management with sublingual oxycodone and sublingual morphine -IV fluids -Zofran for nausea -Encourage incentive spirometry and out of bed to chair -Daily bandage changes and JAELYN drain care Subjective Narrative: Corrected documentation from 10/06/18 to be archived under the general surgery service 68-year-old male admitted to the hospital with perforated cholecystitis and is status post day 1 from robotic cholecystectomy which was converted to open. P atient complains of abdominal pain in the right upper quadrant that is slightly improved from yesterday. Objective Vital Signs - Last 8 Hours Temp Pulse Resp BP Pulse Ox 10/08/18 10:45 97.9 F 76 16 156/75 92 10/08/18 07:47 93 10/08/18 07:08 98 F 65 20 163/83 93 10/08/18 03:46 98.8 F 66 18 154/63 91 Intake and Output 10/07/18 10/08/18 10/08/18 23:59 07:59 15:59 Intake Total 300 / 1340 1260 / 1630 370 / 1630 Output Total 410 / 1395 455 / 455 0 / 455 Balance -110 / -55 805 / 1175 370 / 1175 Intake: IV Fluids 1260 / 1270 10 / 1270 Lactated Ringers 1,000 ML @ 100 1000 / 1000 mls/hr IVC .Q10H [facility] Rx#: [id number] Rocephin 1,000 MG In Water for inj. (sterile) 10 ML @ 600 mls/ hr IVP DAILY [facility] Rx#:[id number] Zithromax 500 mg In Dextrose 5% 250 / 250 250 ML @ 252 mls/hr IVPB Q24H [facility] Rx#:[id number] Oral 300 / 380 360 / 360 Output: Urine 400 / 1350 450 / 450 Wound Drainage 5 / 5 0 / 5 Right LQ 5 / 0 / 5 Other: Meal Dinner Breakfast Percent of Meal Consumed 85% 0% Weight 98.1 kg Blood Glucose* 139 107 Patient Weight 10/08/18 23:59 Weight 98.1 kg - General physical appearance well developed, well nourished - Eyes PERRL, normal ocular movement - ENT normal pinna, normal nares - Neck Neck exam: trachea midline, no venous distension - Respiratory normal expansion, normal respiratory effort - Cardiovascular Cardiovascular exam: Present: RRR - Abdomen Abdomen: Present: tender Abdominal Tenderness: RUQ Additional Comments: Surgical incision site is bandaged and there is appropriate postsurgical tenderness. JAELYN drain in place draining sanguinous fluid - Labs 10/08/18 04:47 10/08/18 04:47 Diabetes panel 10/08/18 Range/Units 04:47 Sodium 135 L (136-145) mEq/L Potassium 3.5 (3.5-5.1) mEq/L Chloride 99 (98-107) mEq/L Carbon Dioxide 29 (23-29) mEq/L BUN 10 (8-23) mg/dL Creatinine 0.55 L (0.70-1.30) mg/dL Glucose 114 H (70-105) mg/dL Calcium 8.6 (8.6-10.3) mg/dL AST 16 (13-39) Units/L ALT 12 (7-52) Units/L Alkaline Phosphatase 43 (34-104) Units/L Albumin 3.2 L (3.5-5.7) g/dL Calcium panel 10/08/18 Range/Units 04:47 Calcium 8.6 (8.6-10.3) mg/dL Albumin 3.2 L (3.5-5.7) g/dL Pituitary panel 10/08/18 Range/Units 04:47 Sodium 135 L (136-145) mEq/L Potassium 3.5 (3.5-5.1) mEq/L Chloride 99 (98-107) mEq/L Carbon Dioxide 29 (23-29) mEq/L BUN 10 (8-23) mg/dL Creatinine 0.55 L (0.70-1.30) mg/dL Glucose 114 H (70-105) mg/dL Calcium 8.6 (8.6-10.3) mg/dL Adrenal panel 10/08/18 Range/Units 04:47 Sodium 135 L (136-145) mEq/L Potassium 3.5 (3.5-5.1) mEq/L Chloride 99 (98-107) mEq/L Carbon Dioxide 29 (23-29) mEq/L BUN 10 (8-23) mg/dL Creatinine 0.55 L (0.70-1.30) mg/dL Glucose 114 H (70-105) mg/dL Calcium 8.6 (8.6-10.3) mg/dL Total Bilirubin 1.1 H (0.3-1.0) mg/dL AST 16 (13-39) Units/L ALT 12 (7-52) Units/L Alkaline Phosphatase 43 (34-104) Units/L Albumin 3.2 L (3.5-5.7) g/dL Consult Discharge Plan - Plan Referrals: Cata Houston, STORAGE WORKER [Advanced Practice Nurse] - 10/19/18 10:00 am [facility] [[facility] Care Provider[facility] - <José Luis Chung - Last Filed: 10/09/18 06:47> Date of Encounter: 10/08/18 Objective Vital Signs - Last 8 Hours Temp Pulse Resp BP Pulse Ox 10/09/18 03:34 98.6 F 73 18 147/72 92 10/08/18 23:50 98.5 F 90 18 177/71 92 Intake and Output 10/08/18 10/08/18 10/09/18 15:59 23:59 07:59 Intake Total 1120 / 3340 960 / 3340 0 / 0 Output Total 0 / 1430 975 / 1430 540 / 540 Balance 112 / 1909 -15 / 1909 -540 / -540 Intake: IV Fluids 160 / 1420 Rocephin 1,000 MG In Water for inj. (sterile) 10 ML @ 600 mls/ hr IVP DAILY [facility] Rx#:[id number] Levaquin Premix 750mg/150 mL 150 / 150 750 mg In 150 ml @ 100 mls/hr IVPB DAILY [facility] Rx#:[id number] Oral 960 / 1920 960 / 1920 0 / 0 Output: Urine 975 / 1425 500 / 500 Wound Drainage 0 / 5 0 / 5 40 / 40 Right LQ 0 / 5 0 / 5 40 / 40 Other: Meal Lunch Dinner Percent of Meal Consumed 100% 100% Weight 92.9 kg Blood Glucose* 130 110 Patient Weight 10/09/18 23:59 Weight 92.9 kg - Labs 10/09/18 05:55 10/09/18 05:55 Diabetes panel 10/09/18 Range/Units 05:55 Sodium 133 L (136-145) mEq/L Potassium 3.6 (3.5-5.1) mEq/L Chloride 96 L (98-107) mEq/L Carbon Dioxide 29 (23-29) mEq/L BUN 10 (8-23) mg/dL Creatinine 0.65 L (0.70-1.30) mg/dL Glucose 113 H (70-105) mg/dL Calcium 8.8 (8.6-10.3) mg/dL AST 16 (13-39) Units/L ALT 11 (7-52) Units/L Alkaline Phosphatase 51 (34-104) Units/L Albumin 3.2 L (3.5-5.7) g/dL Calcium panel 10/09/18 Range/Units 05:55 Calcium 8.8 (8.6-10.3) mg/dL Albumin 3.2 L (3.5-5.7) g/dL Pituitary panel 10/09/18 Range/Units 05:55 Sodium 133 L (136-145) mEq/L Potassium 3.6 (3.5-5.1) mEq/L Chloride 96 L (98-107) mEq/L Carbon Dioxide 29 (23-29) mEq/L BUN 10 (8-23) mg/dL Creatinine 0.65 L (0.70-1.30) mg/dL Glucose 113 H (70-105) mg/dL Calcium 8.8 (8.6-10.3) mg/dL Adrenal panel 10/09/18 Range/Units 05:55 Sodium 133 L (136-145) mEq/L Potassium 3.6 (3.5-5.1) mEq/L Chloride 96 L (98-107) mEq/L Carbon Dioxide 29 (23-29) mEq/L BUN 10 (8-23) mg/dL Creatinine 0.65 L (0.70-1.30) mg/dL Glucose 113 H (70-105) mg/dL Calcium 8.8 (8.6-10.3) mg/dL Total Bilirubin 0.9 (0.3-1.0) mg/dL AST 16 (13-39) Units/L ALT 11 (7-52) Units/L Alkaline Phosphatase 51 (34-104) Units/L Albumin 3.2 L (3.5-5.7) g/dL - Attending Attestation I examined this patient and my medical decision-making was reviewed with the Resident Physician. I agree with the documented findings, disposition and nicky tment plan as described except to the extent set forth below. I reviewed the above assessment and evaluation and agree with the above plan.
[2018-10-08] MEDS: Levofloxacin 750 MG/150 ML 750 MG/150 ML BAG IVPB SCH (11:09)
--- NOTE | 2018-10-08 11:12 | General Surgery Progress Note ---
<Alfie Carreon N - Last Filed: 10/08/18 11:10> Date of Encounter: 10/07/18 Time of Encounter: 08:00 - Assessment and Plan (1) Perforation of gallbladder in cholecystitis Current Visit: Yes Status: Acute The below assessment and plan is from 10/07/2018. 68-year-old male POD #2 from robotic and open cholecystectomy for perforated gallbladder and cholecystitis -Advanced diet to full liquids -Pain management with sublingual oxycodone and sublingual morphine -Zofran for nausea -Encourage incentive spirometry and out of bed to chair -Daily bandage changes and JAELYN drain care -PT/OT consult placed (2) Pneumonia Current Visit: Yes Status: Acute -Patient has a progressively worsening nonproductive cough -O2 demand slightly increased -Has mild leukocytosis, but otherwise hemodynamically stable -Obtained chest x-ray with findings significant for airspace opacity at the rig ht lung base, likely related to pneumonia -Obtained blood cultures -We will consult medical team for recommendations -Consult respiratory for pulmonary toilet Qualifiers: Pneumonia type: due to unspecified organism Laterality: right Lung location: lower lobe of lung Qualified Code(s): J18.1 - Lobar pneumonia, unspecified organism Subjective Narrative: This report reflects documentation from 10/07/18 for the patient's care. Patient seen and examined at bedside this morning. He is status POD #2 from robotic and open cholecystectomy. Complains of a cough that is nonproductive and has coarse breath sounds on exam. Objective Vital Signs - Last 8 Hours Temp Pulse Resp BP Pulse Ox 10/08/18 10:45 97.9 F 76 16 156/75 92 10/08/18 07:47 93 10/08/18 07:08 98 F 65 20 163/83 93 10/08/18 03:46 98.8 F 66 18 154/63 91 Intake and Output 10/07/18 10/08/18 10/08/18 23:59 07:59 15:59 Intake Total 300 / 1340 1260 / 1630 370 / 1630 Output Total 410 / 1395 455 / 455 0 / 455 Balance -110 / -55 805 / 1175 370 / 1175 Intake: IV Fluids 1260 / 1270 10 / 1270 Lactated Ringers 1,000 ML @ 100 1000 / 1000 mls/hr IVC .Q10H [facility] Rx#: [id number] Rocephin 1,000 MG In Water for inj. (sterile) 10 ML @ 600 mls/ hr IVP DAILY [facility] Rx#:[id number] Zithromax 500 mg In Dextrose 5% 250 / 250 250 ML @ 252 mls/hr IVPB Q24H [facility] Rx#:[id number] Oral 300 / 380 360 / 360 Output: Urine 400 / 1350 450 / 450 Wound Drainage 0 / 5 Right LQ 0 / 5 Other: Meal Dinner Breakfast Percent of Meal Consumed 85% 0% Weight 98.1 kg Blood Glucose* 139 107 164 Patient Weight 10/08/18 23:59 Weight 98.1 kg - General physical appearance well developed, well nourished - Eyes PERRL, normal ocular movement - ENT normal pinna, normal nares - Neck Neck exam: trachea midline, no venous distension - Respiratory other (Coarse rhonchorous breath sounds) - Cardiovascular Cardiovascular exam: Present: RRR. Absent: murmurs - Abdomen Abdomen: Present: bowel sounds present, tender (Appropriate postsurgical tenderness. JAELYN drain in place draining sanguinous fluid.) - Labs 10/08/18 04:47 10/08/18 04:47 Diabetes panel 10/08/18 Range/Units 04:47 Sodium 135 L (136-145) mEq/L Potassium 3.5 (3.5-5.1) mEq/L Chloride 99 (98-107) mEq/L Carbon Dioxide 29 (23-29) mEq/L BUN 10 (8-23) mg/dL Creatinine 0.55 L (0.70-1.30) mg/dL Glucose 114 H (70-105) mg/dL Calcium 8.6 (8.6-10.3) mg/dL AST 16 (13-39) Units/L ALT 12 (7-52) Units/L Alkaline Phosphatase 43 (34-104) Units/L Albumin 3.2 L (3.5-5.7) g/dL Calcium panel 10/08/18 Range/Units 04:47 Calcium 8.6 (8.6-10.3) mg/dL Albumin 3.2 L (3.5-5.7) g/dL Pituitary panel 10/08/18 Range/Units 04:47 Sodium 135 L (136-145) mEq/L Potassium 3.5 (3.5-5.1) mEq/L Chloride 99 (98-107) mEq/L Carbon Dioxide 29 (23-29) mEq/L BUN 10 (8-23) mg/dL Creatinine 0.55 L (0.70-1.30) mg/dL Glucose 114 H (70-105) mg/dL Calcium 8.6 (8.6-10.3) mg/dL Adrenal panel 10/08/18 Range/Units 04:47 Sodium 135 L (136-145) mEq/L Potassium 3.5 (3.5-5.1) mEq/L Chloride 99 (98-107) mEq/L Carbon Dioxide 29 (23-29) mEq/L BUN 10 (8-23) mg/dL Creatinine 0.55 L (0.70-1.30) mg/dL Glucose 114 H (70-105) mg/dL Calcium 8.6 (8.6-10.3) mg/dL Total Bilirubin 1.1 H (0.3-1.0) mg/dL AST 16 (13-39) Units/L ALT 12 (7-52) Units/L Alkaline Phosphatase 43 (34-104) Units/L Albumin 3.2 L (3.5-5.7) g/dL Consult Discharge Plan - Plan Referrals: Cata Houston, [employer] [Advanced Practice Nurse] - 10/19/18 10:00 am [facility] [[facility] Care Provider[facility] - <José Luis Chung - Last Filed: 10/09/18 06:47> Date of Encounter: 10/07/18 Objective Vital Signs - Last 8 Hours Temp Pulse Resp BP Pulse Ox 10/09/18 03:34 98.6 F 73 18 147/72 92 10/08/18 23:50 98.5 F 90 18 177/71 92 Intake and Output 10/08/18 10/08/18 10/09/18 15:59 23:59 07:59 Intake Total 1120 / 3340 960 / 3340 0 / 0 Output Total 0 1430 975 / 1430 540 / 540 Balance 1119 / 1909 -15 1909 -540 / -540 Intake: IV Fluids 160 / 1420 Rocephin 1,000 MG In Water for inj. (sterile) 10 ML @ 600 mls/ hr IVP DAILY [facility] Rx#:[id number] Levaquin Premix 750mg/150 mL 150 / 150 750 mg In 150 ml @ 100 mls/hr IVPB DAILY [facility] Rx#:[id number] Oral 960 / 1920 960 / 1920 0 / 0 Output: Urine 975 / 1425 500 / 500 Wound Drainage 0 / 5 0 / 5 40 / 40 Right LQ 0 / 5 0 / 5 40 / 40 Other: Meal Lunch Dinner Percent of Meal Consumed 100% 100% Weight 92.9 kg Blood Glucose* 130 110 Patient Weight 10/09/18 23:59 Weight 92.9 kg - Labs 10/09/18 05:55 10/09/18 05:55 Diabetes panel 10/09/18 Range/Units 05:55 Sodium 133 L (136-145) mEq/L Potassium 3.6 (3.5-5.1) mEq/L Chloride 96 L (98-107) mEq/L Carbon Dioxide 29 (23-29) mEq/L BUN 10 (8-23) mg/dL Creatinine 0.65 L (0.70-1.30) mg/dL Glucose 113 H (70-105) mg/dL Calcium 8.8 (8.6-10.3) mg/dL AST 16 (13-39) Units/L ALT 11 (7-52) Units/L Alkaline Phosphatase 51 (34-104) Units/L Albumin 3.2 L (3.5-5.7) g/dL Calcium panel 10/09/18 Range/Units 05:55 Calcium 8.8 (8.6-10.3) mg/dL Albumin 3.2 L (3.5-5.7) g/dL Pituitary panel 10/09/18 Range/Units 05:55 Sodium 133 L (136-145) mEq/L Potassium 3.6 (3.5-5.1) mEq/L Chloride 96 L (98-107) mEq/L Carbon Dioxide 29 (23-29) mEq/L BUN 10 (8-23) mg/dL Creatinine 0.65 L (0.70-1.30) mg/dL Glucose 113 H (70-105) mg/dL Calcium 8.8 (8.6-10.3) mg/dL Adrenal panel 10/09/18 Range/Units 05:55 Sodium 133 L (136-145) mEq/L Potassium 3.6 (3.5-5.1) mEq/L Chloride 96 L (98-107) mEq/L Carbon Dioxide 29 (23-29) mEq/L BUN 10 (8-23) mg/dL Creatinine 0.65 L (0.70-1.30) mg/dL Glucose 113 H (70-105) mg/dL Calcium 8.8 (8.6-10.3) mg/dL Total Bilirubin 0.9 (0.3-1.0) mg/dL AST 16 (13-39) Units/L ALT 11 (7-52) Units/L Alkaline Phosphatase 51 (34-104) Units/L Albumin 3.2 L (3.5-5.7) g/dL - Attending Attestation I examined this patient and my medical decision-making was reviewed with the Resident Physician. I agree with the documented findings, disposition and treatment plan as described except to the extent set forth below. I personally reviewed the above mentioned assessment and evaluation and agree with the above plan. Will encourage out of bed to chair. Will advance to full liquids. Consult hospitalist due to concern regarding pneumonia and recommendations for antibiotics. Await return of bowel function.
[2018-10-08] MEDS: risperiDONE 1 MG TABLET PO SCH (20:34)
[2018-10-09] MEDS: *HR* Enoxaparin 40 MG/0.4 ML SYRINGE SQ SCH (05:47)
[2018-10-09 06:34] LABS: Hemoglobin 11.6 g/dL (12.9-16.9); Mean Corpuscular HGB Conc 34.1 g/dL (31.6-35.5); Mean Corpuscular Hemoglobin 28.6 pg (28.0-33.3); Mean Corpuscular Volume 83.7 fL (83.0-100.0); Mean Platelet Volume 10.3 fL (9.4-12.4); Platelet Count 175 K/mcL (140-400); Red Blood Count 4.06 M/mcL (4.19-5.50); Red Cell Distribution Width 13.3 % (11.5-14.5)
[2018-10-09 06:44] LABS: Alanine Aminotransferase 11 Units/L (7-52); Albumin 3.2 g/dL (3.5-5.7); Albumin/Globulin Ratio 1.4 (1.1-2.2); Alkaline Phosphatase 51 Units/L (34-104); Aspartate Amino Transferase 16 Units/L (13-39); BUN/Creatinine Ratio 15 (6-26); Bilirubin,Total 0.9 mg/dL (0.3-1.0); Blood Urea Nitrogen 10 mg/dL (8-23); Calcium 8.8 mg/dL (8.6-10.3); Carbon Dioxide 29 mEq/L (23-29); Chloride 96 mEq/L (98-107); Globulin 2.3 g/dL (2.4-3.5); Glucose 113 mg/dL (70-105); Osmolality,Calculated 276 (280-300); Potassium 3.6 mEq/L (3.5-5.1); Sodium 133 mEq/L (136-145); Total Protein 5.5 g/dL (6.4-8.9); eGFR For Non-African Americans > 60 (> 60)
[2018-10-09] MEDS ORDERED: *HR* OxyCODONE/APAP 5/325 TABLET PO PRN (07:55)
[2018-10-09] MEDS ORDERED: OXYCODONE Oral CONC 10 MG/0.5 ML ORAL.SYG SL PRN (07:57)
--- NOTE | 2018-10-09 08:03 | General Surgery Progress Note ---
Date of Encounter: 10/09/18 Time of Encounter: 08:01 - Assessment and Plan (1) Perforation of gallbladder in cholecystitis Current Visit: Yes Status: Acute 68M pMH significant for HTN, psychiatric disorders who is now POD #4 s/p robotic converted to open cholecystectomy with IOC; non septic; HDS; tolerating diet, pain controlled; now with pneumonia activity and diet as tolerated SLIV pulm toileting appreciate hospitalist recs for pneumonia okay to transfer to [place] for continued care follow up with general surgery in 4 weeks cont JAELYN drain due to output volume Subjective Patient reports: no new complaints, feels better, still having pain, pain is less, tolerating liquids well Objective Vital Signs - Last 8 Hours Temp Pulse Resp BP Pulse Ox 10/09/18 07:20 97.5 F L 68 15 138/71 93 10/09/18 03:34 98.6 F 73 18 147/72 92 Intake and Output 10/08/18 10/09/18 10/09/18 23:59 07:59 15:59 Intake Total 960 / 3340 0 / 0 Output Total 975 / 1430 540 / 540 Balance -15 / 1910 -540 / -540 Intake: Oral 960 / 1920 0 / 0 Output: Urine 975 / 1425 500 / 500 Wound Drainage 0 / 5 40 / 40 Right LQ 0 / 5 40 / 40 Other: Meal Dinner Percent of Meal Consumed 100% Weight 92.9 kg Blood Glucose* 110 105 Patient Weight 10/09/18 23:59 Weight 92.9 kg - General physical appearance no distress - Respiratory normal expansion, normal respiratory effort - Cardiovascular Cardiovascular exam: Present: RRR - Abdomen Abdomen: Present: soft, tender (appropriately tender) - Incision Incision: Present: clean and dry, intact - Neurologic CN 2-12 grossly intact - Labs 10/09/18 05:55 10/09/18 05:55 Diabetes panel 10/09/18 Range/Units 05:55 Sodium 133 L (136-145) mEq/L Potassium 3.6 (3.5-5.1) mEq/L Chloride 96 L (98-107) mEq/L Carbon Dioxide 29 (23-29) mEq/L BUN 10 (8-23) mg/dL Creatinine 0.65 L (0.70-1.30) mg/dL Glucose 113 H (70-105) mg/dL Calcium 8.8 (8.6-10.3) mg/dL AST 16 (13-39) Units/L ALT 11 (7-52) Units/L Alkaline Phosphatase 51 (34-104) Units/L Albumin 3.2 L (3.5-5.7) g/dL Calcium panel 10/09/18 Range/Units 05:55 Calcium 8.8 (8.6-10.3) mg/dL Albumin 3.2 L (3.5-5.7) g/dL Pituitary panel 10/09/18 Range/Units 05:55 Sodium 133 L (136-145) mEq/L Potassium 3.6 (3.5-5.1) mEq/L Chloride 96 L (98-107) mEq/L Carbon Dioxide 29 (23-29) mEq/L BUN 10 (8-23) mg/dL Creatinine 0.65 L (0.70-1.30) mg/dL Glucose 113 H (70-105) mg/dL Calcium 8.8 (8.6-10.3) mg/dL Adrenal panel 10/09/18 Range/Units 05:55 Sodium 133 L (136-145) mEq/L Potassium 3.6 (3.5-5.1) mEq/L Chloride 96 L (98-107) mEq/L Carbon Dioxide 29 (23-29) mEq/L BUN 10 (8-23) mg/dL Creatinine 0.65 L (0.70-1.30) mg/dL Glucose 113 H (70-105) mg/dL Calcium 8.8 (8.6-10.3) mg/dL Total Bilirubin 0.9 (0.3-1.0) mg/dL AST 16 (13-39) Units/L ALT 11 (7-52) Units/L Alkaline Phosphatase 51 (34-104) Units/L Albumin 3.2 L (3.5-5.7) g/dL Consult Discharge Plan - Plan Referrals: Cata Houston, SHANE [Advanced Practice Nurse] - 10/19/18 10:00 am [facility] -
--- NOTE | 2018-10-09 08:03 | Discharge Summary ---
<Cata Houston - Last Filed: 10/09/18 12:29> Orders not resulted at time of discharge: Pending orders 10/05/18 14:24 Surgical Pathology [PTH] Routine 10/07/18 09:46 Culture,Blood [BC] Stat 10/10/18 04:00 CMP [Comprehensive Metabolic Panel] AM 0400 Complete Blood Count w/o Diff [HEME] AM 0400 10/11/18 04:00 CMP [Comprehensive Metabolic Panel] AM 0400 Complete Blood Count w/o Diff [HEME] AM 0400 10/12/18 04:00 CMP [Comprehensive Metabolic Panel] AM 0400 Complete Blood Count w/o Diff [HEME] AM 0400 Date of Encounter: 10/09/18 Time of Encounter: 07:45 - Discharge Diagnosis (1) Acute cholecystitis Priority: Primary Status: Resolved (2) DVT prophylaxis Priority: Secondary Status: Acute (3) Schizophrenia Priority: Secondary Status: Chronic Qualifiers: Schizophrenia type: unspecified Qualified Code(s): F20.9 - Schizophrenia, unspecified (4) Pneumonia Priority: Secondary Status: Acute Qualifiers: Pneumonia type: due to unspecified organism Laterality: right Lung location: lower lobe of lung Qualified Code(s): J18.1 - Lobar pneumonia, unspecified organism General Surgery Exam Initial Vital Signs Temp Pulse Resp BP Pulse Ox 97.5 F L 72 18 152/90 92 10/05/18 08:51 10/05/18 08:51 10/05/18 08:51 10/05/18 08:51 10/05/18 08:51 - General physical appearance no distress, moderate pain (with activity) - ENT atraumatic, normocephalic - Neck trachea midline - Respiratory other (decreased, course) - Cardiovascular Cardiovascular exam: Present: RRR - Abdomen Abdomen general surgery: Present: bowel sounds present, soft, tender (expected postoperative), wound (JAELYN site is unremarkable. Draining SS fluid) - Incision Incision: Present: clean and dry, intact - Integumentary Integumentary general surgery: Present: warm and dry - Neurologic Present: normal sensation - Musculoskeletal Present: normal posture - Psychiatric Psychiatric general surgery: Present: A&Ox3 - Hospital Course Hospital course: Mr. Tang is a 68 year old male who presented for elective laparoscopic cholecystectomy. On 10/05/2018 he was taken to the OR where he underwent laparoscopic converted to open cholecystectomy with JAELYN drain placement. His hospital course was complicated by pneumonia. He was started on antibiotics and quickly returned to baseline. His white blood cell count is normalized, vital signs are stable, afebrile, and is discomfort is controlled. We will begin discharge planning to home with home health care and with a follow-up in the office in approximately one week for a drain check. - Time Spent with Patient Total time spent providing and/or coordinating discharge services: - Discharge Medications Prescriptions: New Docusate Sodium [Colace] 100 mg PO BID PRN #30 capsule PRN Reason: Contstipation Cyclobenzaprine [Flexeril] 5 mg PO TID PRN 14 Days #20 tablet PRN Reason: Muscle Spasm Polyethylene Glycol 3350 [MiraLAX Powder Bulk 17.9 Oz] 1 scoop PO DAILY 30 Days #510 gm Ibuprofen [Motrin] 600 mg PO TID PRN #30 tablet PRN Reason: Mild Pain OxyCODONE/APAP 5/325 [Percocet 5/325 MG] 1 each PO Q6HR PRN 7 Days #28 tablet PRN Reason: Pain Levofloxacin [Levaquin] 750 mg PO DAILY 4 Days #4 tablet Continued Atorvastatin [Lipitor] 40 mg PO HS Carbamide Peroxide [Ear Drops] 4 drp BOTH EARS AD Hydrochlorothiazide [Microzide] 12.5 mg PO DAILY Ketotifen Fumarate [Zaditor] 1 drp BOTH EYES BID LORazepam [Ativan] 0.5 mg PO DAILY Perphenazine 16 mg PO BID RisperiDONE MICROSPHERES [RisperDAL CONSTA] 25 mg IM Q14D risperiDONE [Risperdal] 2 mg PO HS Acetaminophen [Tylenol 8 Hour] 650 mg PO Q6H PRN #30 tablet.er PRN Reason: Pain Home Medications: Atorvastatin [Lipitor] 40 mg PO HS 08/02/18 [History] Carbamide Peroxide [Ear Drops] 4 drp BOTH EARS AD 08/02/18 [History] Hydrochlorothiazide [Microzide] 12.5 mg PO DAILY 08/02/18 [History] Ketotifen Fumarate [Zaditor] 1 drp BOTH EYES BID 08/02/18 [History] LORazepam [Ativan] 0.5 mg PO DAILY 08/02/18 [History] Perphenazine 16 mg PO BID 08/02/18 [History] RisperiDONE MICROSPHERES [RisperDAL CONSTA] 25 mg IM Q14D 08/02/18 [History] risperiDONE [Risperdal] 2 mg PO HS 08/02/18 [History] Acetaminophen [Tylenol 8 Hour] 650 mg PO Q6H PRN #30 tablet.er 08/03/18 [Rx] Cyclobenzaprine [Flexeril] 5 mg PO TID PRN 14 Days #20 tablet 10/09/18 [Rx] Docusate Sodium [Colace] 100 mg PO BID PRN #30 capsule 10/09/18 [Rx] Ibuprofen [Motrin] 600 mg PO TID PRN #30 tablet 10/09/18 [Rx] Levofloxacin [Levaquin] 750 mg PO DAILY 4 Days #4 tablet 10/09/18 [Rx] OxyCODONE/APAP 5/325 [Percocet 5/325 MG] 1 each PO Q6HR PRN 7 Days #28 tablet 10/09/18 [Rx] Polyethylene Glycol 3350 [MiraLAX Powder Bulk 17.9 Oz] 1 scoop PO DAILY 30 Days #510 gm 10/09/18 [Rx] Allergies/Adverse Reactions: Allergy/AdvReac Type Severity Reaction Status Date / Time No Known Allergies Allergy Verified 10/05/18 09:38 Date of admission: 10/05/18 17:28 [facility] physician: [facility] Consults: 10/05/18 18:32 Consult to Nutrition [CONS] Routine Comment: Consulting Provider: NUTRITION Reason for Dietary Consult: MST Score Consult to Contracting Specialist [CONS] Routine Reason for SW Consult: Patient states he lives at home independently, but [facility] and patient has what he thinks is his guardian. 10/07/18 10:45 Consult to Respiratory Therapy [CONS] Routine Reason for Consult: pulmonary toileting Call Completed: No 10/07/18 11:26 Consult to Hospitalist [CONS] Routine Consulting Provider: Hospitalist Chavo Reason for Consult: hypertension, and pneumonia Call Completed: Yes 10/07/18 14:10 Consult to Occupational Therapy [CONS] Routine Comment: Evaluate, develop and implement POC Reason for Consult: s/p cholecystectomy, discharge recommendations and therapy while in patient Does patient have active BEDREST order?: No Is patient medically & hemodynamically stable?: Yes Consult to Physical Therapy [CONS] Routine Comment: Evaluate, develop and implement POC Reason for Consult: s/p cholecystectomy, discharge recommendations and therapy while in patient Does patient have active BEDREST order?: No Is patient medically & hemodynamically stable?: Yes Discharging clinician: Bandar Lin (Evy Houston) Anticipated date of discharge: 10/09/18 Labs on day of discharge: Labs from last 24 hours 10/09/18 10/09/18 10/08/18 05:55 05:55 11:08 WBC 8.5 RBC 4.06 L Hgb 11.6 L Hct 34.0 L MCV 83.7 MCH 28.6 MCHC 34.1 RDW 13.3 Plt Count 175 MPV 10.3 Sodium 133 L Potassium 3.6 Chloride 96 L Carbon Dioxide 29 BUN 10 Creatinine 0.65 L Est GFR ( Amer) > 60 Est GFR (Non-Af Amer) > 60 BUN/Creatinine Ratio 15 Glucose 113 H POC Glucose 164 H Calculated Osmolality 276 L Calcium 8.8 Total Bilirubin 0.9 AST 16 ALT 11 Alkaline Phosphatase 51 Serum Total Protein 5.5 L Albumin 3.2 L Globulin 2.3 L Albumin/Globulin Ratio 1.4 Nasal Screen MRSA (PCR) 10/08/18 10/06/18 10/06/18 10:45 16:22 11:18 WBC RBC Hgb Hct MCV MCH MCHC RDW Plt Count MPV Sodium Potassium Chloride Carbon Dioxide BUN Creatinine Est GFR ( Amer) Est GFR (Non-Af Amer) BUN/Creatinine Ratio Glucose POC Glucose 113 H 125 H Calculated Osmolality Calcium Total Bilirubin AST ALT Alkaline Phosphatase Serum Total Protein Albumin Globulin Albumin/Globulin Ratio Nasal Screen MRSA (PCR) Negative Preliminary micro results at discharge 10/07/18 09:46 Blood Culture - Preliminary Peripheral Venipuncture Culture is incubating and being continuously monitored for growth. Final report to follow. 10/07/18 09:46 Blood Culture - Preliminary Peripheral Venipuncture Culture is incubating and being continuously monitored for growth. Final report to follow. - Impressions ITS Impressions Chest X-Ray 10/07/18 07:40 IMPRESSION: Airspace opacity at the right lung base, likely related to pneumonia. D/ / Neptali Domingo MD / Neptali Domingo MD Interpreting Provider: Neptali Domingo MD - Patient Status Disposition: Home Health Service Condition: Fair Overall status at discharge: patient is progressing back to baseline - Discharge Instructions Instructions: David-Chiang Drain Care (DC), Open Cholecystectomy (DC), Chronic Hypertension (DC), Pneumonia (DC) Follow Up With: Cata Houston CNP [Advanced Practice Nurse] - 10/19/18 10:00 am [facility] [[facility] Care Provider[facility] - Additional Instructions: General Surgical Discharge Instructions 1. No pushing, pulling, or lifting greater than 15 lbs for 6 weeks. 2. You may shower beginning today, but no tub baths, soaking, or swimming until directed otherwise. 3. You may resume driving when you are off narcotics and are safe to react in a car. 4. Take ibuprofen every 8 hours for discomfort. If this does not relieve discomfort, you may take the as needed Percocet. Take narcotics as directed. Do not take more narcotics then directed and do not share your narcotics with any other person. Do not drink alcohol while on narcotics. 5. Take stool softeners (Colace) or a water based laxative (Miralax) while taking narcotics. You may hold for loose stools. 6. Report any fevers greater than 100.5F, increase abdominal discomfort, drainage that looks like pus, increased redness or pain at the surgical site, or any vomiting. 7. Report any pain in the calves, shortness of breath, or rapid heartbeat. 8. Follow-up in the office as directed. 9. If you were prescribed antibiotics, do not stop them without talking to your provider. Daily JAELYN Drain Care: 1. Remove dressings. Shower with antibacterial soap. 2. Do not let the JAELYN drain dangle from your body. Use the safety pin to secure to your clothing. Secure the JAELYN to a lanyard or other type of long necklace when you shower. 3. Replace drain gauze and taped to secure. 4. Record the output from your JAELYN bulb (at least once daily) on the form provided and bring this with you to your follow-up appointment. 5. Keep the JAELYN drain to suction (squeeze the bulb and replace the cap while squeezing). 6. Strip the lines twice daily (hold onto the line as close to the body as you can, then with the other hand push the contents of the line into the JAELYN bulb). - Diet and Activity Activity: as per physical therapy, increase activity as tolerated Diet: advance to your usual diet <Bandar Lin - Last Filed: 10/10/18 18:15> Orders not resulted at time of discharge: Pending orders 10/07/18 09:46 Culture,Blood [BC] Stat Date of Encounter: 10/10/18 - Discharge Diagnosis (1) Perforation of gallbladder in cholecystitis Status: Acute General Surgery Exam Initial Vital Signs Temp Pulse Resp BP Pulse Ox 97.5 F L 72 18 152/90 92 10/05/18 08:51 10/05/18 08:51 10/05/18 08:51 10/05/18 08:51 10/05/18 08:51 - Hospital Course Hospital course: Mr. Tang is a 68 year old male - Time Spent with Patient Total time spent providing and/or coordinating discharge services: Date of admission: 10/05/18 17:28 Primary care physician: [facility] Consults: 10/05/18 18:32 Consult to Nutrition [CONS] Routine Comment: Consulting Provider: NUTRITION Reason for Dietary Consult: MST Score Consult to Contracting Specialist [CONS] Routine Reason for SW Consult: Patient states he lives at home independently, but [facility] and patient has what he thinks is his guardian. 10/07/18 10:45 Consult to Respiratory Therapy [CONS] Routine Reason for Consult: pulmonary toileting Call Completed: No 10/07/18 11:26 Consult to Hospitalist [CONS] Routine Consulting Provider: Hospitalist Chavo Reason for Consult: hypertension, and pneumonia Call Completed: Yes 10/07/18 14:10 Consult to Occupational Therapy [CONS] Routine Comment: Evaluate, develop and implement POC Reason for Consult: s/p cholecystectomy, discharge recommendations and therapy while in patient Does patient have active BEDREST order?: No Is patient medically & hemodynamically stable?: Yes Consult to Physical Therapy [CONS] Routine Comment: Evaluate, develop and implement POC Reason for Consult: s/p cholecystectomy, discharge recommendations and therapy while in patient Does patient have active BEDREST order?: No Is patient medically & hemodynamically stable?: Yes Labs on day of discharge: Labs from last 24 hours 10/08/18 10/08/18 21:33 15:50 POC Glucose 110 H 130 H Preliminary micro results at discharge 10/07/18 09:46 Blood Culture - Preliminary Peripheral Venipuncture Culture is incubating and being continuously monitored for growth. Final report to follow. 10/07/18 09:46 Blood Culture - Preliminary Peripheral Venipuncture Culture is incubating and being continuously monitored for growth. Final report to follow. - Impressions ITS Impressions Chest X-Ray 10/07/18 07:40 IMPRESSION: Airspace opacity at the right lung base, likely related to pneumonia. D/ / Neptali Domingo MD / Neptali Domingo MD Interpreting Provider: Neptali Domingo MD - Attending Attestation Patient seen and examined. i have reviewed all labs, imaging, and notes pertinent to this case. i agree with the above assessment and plan.
[2018-10-09] MEDS ORDERED: Ibuprofen 600 MG TABLET PO SCH (09:00)
[2018-10-09] MEDS: Levofloxacin 750 MG/150 ML 750 MG/150 ML BAG IVPB SCH (09:26)
[2018-10-09] MEDS: hydroCHLOROthiazide 25 MG TABLET PO SCH (09:27)
[2018-10-09] MEDS: *HR* LORazepam 0.5 MG TABLET PO SCH (09:28)
--- NOTE | 2018-10-09 10:14 | Internal Med Progress Note ---
Hospitalist Progress Note - Encounter Date of Encounter: 10/09/18 Time of Encounter: 09:14 - Subjective Interval History: Patient seen and examined this morning at bedside. overnight events. Patient's breathing gradually improved. Abdominal soreness improved. Denies any nausea vomiting fevers or chills. Afebrile on her cards and hemodynamically stable. Passing gas. No diarrhea noted. - Exam Vitals: Temp Pulse Resp BP Pulse Ox 97.5 F L 68 15 138/71 93 10/09/18 07:20 10/09/18 07:20 10/09/18 07:20 10/09/18 07:20 10/09/18 07:20 Exam: General: In no acute distress. flat affect Respiratory exam: no accessory muscle use. CTAB Cardiovascular exam: RRR, +S1, +S2. no murmur, gallop, rubs. GI/Abdominal exam: soft, no peritoneal signs. Surgical scar without signs of infection. Has JAELYN riri with serosanguis discharge. Extremities exam: no pedal edema, pulses palpable in b/l lower extremities. no calf tenderness Neurological exam: CN II-XII intact, AO X3, no focal deficits. Skin exam: No skin rash - Assessment and Plan (1) DVT prophylaxis Current Visit: No Status: Acute (2) Schizophrenia Current Visit: No Status: Chronic (3) Perforation of gallbladder in cholecystitis Current Visit: Yes Status: Acute (4) Pneumonia Current Visit: Yes Status: Acute (5) HTN (hypertension) Current Visit: Yes Status: Acute - Summary of Assessment and Plan Summary of Assessment and Plan: Assessment Perforation of gallbladder in cholecystitis Pneumonia HTN Schizophrenia DVT prophylaxis Plan - Status post robotic and open cholecystectomy for perforated gallbladder and cholecystitis on 10/05/18. Progressed to regular diet. Has JAELYN drain. Management per primary team. - Patient developed pneumonia after surgery. CXR with RLL pneumonia. RIP, Urine antigens and MRSA negative. blood cultures NGTD 10/07. sputum cultures not good specimen. Surgery planning for discharge today. Would recommend 5 days of levaquin. Obtain EKG to monitor EKG given many schizophrenia medication can increase Qtc as well. If elevated will change to Augmentin. Okay to discharge after. - Continue incentive spirometry along with pain control per primary team. - Elevated blood pressure possibly secondary to pain. Continue HCTZ and when necessary hydralazine. Will need outpatient follow up. - Continue home medication for schizophrenia - On Lovenox for DVT prophylaxis. - Time Spent with Patient Total time spent is greater than 50% in coordination of care (as documented) at patient's floor/unit and/or counseling patient: Internal Medicine: Result - Labs CBC & Chem 7: 10/09/18 05:55 10/09/18 05:55 Labs: Short CBC 10/09/18 Range/Units 05:55 WBC 8.5 (4.3-11.1) K/mcL Hgb 11.6 L (12.9-16.9) g/dL Hct 34.0 L (37.5-50.1) % Plt Count 175 (140-400) K/mcL BMP 10/09/18 05:55 Sodium 133 L Potassium 3.6 Chloride 96 L Carbon Dioxide 29 BUN 10 Creatinine 0.65 L Glucose 113 H Calcium 8.8 Liver Function 10/09/18 Range/Units 05:55 Total Bilirubin 0.9 (0.3-1.0) mg/dL AST 16 (13-39) Units/L ALT 11 (7-52) Units/L Alkaline Phosphatase 51 (34-104) Units/L Albumin 3.2 L (3.5-5.7) g/dL Consult Discharge Plan - Plan Instructions: David-Chiang Drain Care (DC), Open Cholecystectomy (DC), Pneumonia (DC) Additional Instructions: General Surgical Discharge Instructions 1. No pushing, pulling, or lifting greater than 15 lbs for 6 weeks. 2. You may shower beginning today, but no tub baths, soaking, or swimming until directed otherwise. 3. You may resume driving when you are off narcotics and are safe to react in a car. 4. Take ibuprofen every 8 hours for discomfort. If this does not relieve discomfort, you may take the as needed Percocet. Take narcotics as directed. Do not take more narcotics then directed and do not share your narcotics with any other person. Do not drink alcohol while on narcotics. 5. Take stool softeners (Colace) or a water based laxative (Miralax) while taking narcotics. You may hold for loose stools. 6. Report any fevers greater than 100.5F, increase abdominal discomfort, drainage that looks like pus, increased redness or pain at the surgical site, or any vomiting. 7. Report any pain in the calves, shortness of breath, or rapid heartbeat. 8. Follow-up in the office as directed. 9. If you were prescribed antibiotics, do not stop them without talking to your provider. Daily JAELYN Drain Care: 1. Remove dressings. Shower with antibacterial soap. 2. Do not let the JAELYN drain dangle from your body. Use the safety pin to secure to your clothing. Secure the JAELYN to a lanyard or other type of long necklace when you shower. 3. Replace drain gauze and taped to secure. 4. Record the output from your JAELYN bulb (at least once daily) on the form provided and bring this with you to your follow-up appointment. 5. Keep the JAELYN drain to suction (squeeze the bulb and replace the cap while squeezing). 6. Strip the lines twice daily (hold onto the line as close to the body as you can, then with the other hand push the contents of the line into the JAELYN bulb). Referrals: Cata Houston CNP [Advanced Practice Nurse] - 10/19/18 10:00 am [facility] Care Provider[facility] - Prescriptions: OxyCODONE/APAP 5/325 [Percocet 5/325 MG] 1 each PO Q6HR PRN 7 Days #28 tablet PRN Reason: Pain Docusate Sodium [Colace] 100 mg PO BID PRN #30 capsule PRN Reason: Contstipation Cyclobenzaprine [Flexeril] 5 mg PO TID PRN 14 Days #20 tablet PRN Reason: Muscle Spasm Levofloxacin [Levaquin] 750 mg PO DAILY 4 Days #4 tablet Polyethylene Glycol 3350 [MiraLAX Powder Bulk 17.9 Oz] 1 scoop PO DAILY 30 Days #510 gm Ibuprofen [Motrin] 600 mg PO TID PRN #30 tablet PRN Reason: Mild Pain (2) Schizophrenia Qualifiers: Schizophrenia type: unspecified Qualified Code(s): F20.9 - Schizophrenia, unspecified (4) Pneumonia Qualifiers: Pneumonia type: due to unspecified organism Laterality: right Lung location: lower lobe of lung Qualified Code(s): J18.1 - Lobar pneumonia, unspecified organism (5) HTN (hypertension) Qualifiers: Hypertension type: essential hypertension Qualified Code(s): I10 - Essential (primary) hypertension
[2018-10-09 10:36] VITALS: BP 157/74
[2018-10-09] MEDS: Perphenazine 8 MG TABLET PO SCH (12:17)
--- NOTE | 2018-10-09 12:34 | Physician Discharge Referral ---
Home Health/Hosp Referral Info Transfer to: Home Health Attending Provider: Dr. Bandar Lin Provider in Charge Post Discharge: Other ([facility] or [facility] director) - Diagnosis (1) Acute cholecystitis Priority: Primary Status: Resolved (2) DVT prophylaxis Priority: Secondary Status: Acute (3) Schizophrenia Priority: Secondary Status: Chronic (4) Pneumonia Priority: Secondary Status: Acute - Respiratory Orders Smoking Cessation: Smoking cessation has been advised. For more information, call the [place] Tobacco Quit Line at 9-160-KTPZ-NOW. - Dressing/Wound Care Site: JAELYN drain Type of Dressing/Treatments w/Frequency: Split gauze/dry dressings - Diet/Nutrition Diet/Nutrition Orders: Regular - Activity Activity Orders: Up ad pio - Services Needed Following services are medically necessary services: Nursing, Home Health Aide Home Care Orders: General Surgical Discharge Instructions 1. No pushing, pulling, or lifting greater than 15 lbs for 6 weeks. 2. You may shower beginning today, but no tub baths, soaking, or swimming until directed otherwise. 3. You may resume driving when you are off narcotics and are safe to react in a car. 4. Take ibuprofen every 8 hours for discomfort. If this does not relieve discomfort, you may take the as needed Percocet. Take narcotics as directed. Do not take more narcotics then directed and do not share your narcotics with any other person. Do not drink alcohol while on narcotics. 5. Take stool softeners (Colace) or a water based laxative (Miralax) while taking narcotics. You may hold for loose stools. 6. Report any fevers greater than 100.5F, increase abdominal discomfort, drainage that looks like pus, increased redness or pain at the surgical site, or any vomiting. 7. Report any pain in the calves, shortness of breath, or rapid heartbeat. 8. Follow-up in the office as directed. 9. If you were prescribed antibiotics, do not stop them without talking to your provider. Daily JAELYN Drain Care: 1. Remove dressings. Shower with antibacterial soap. 2. Do not let the JAELYN drain dangle from your body. Use the safety pin to secure to your clothing. Secure the JAELYN to a lanyard or other type of long necklace when you shower. 3. Replace drain gauze and taped to secure. 4. Record the output from your JAELYN bulb (at least once daily) on the form provided and bring this with you to your follow-up appointment. 5. Keep the JAELYN drain to suction (squeeze the bulb and replace the cap while squeezing). 6. Strip the lines twice daily (hold onto the line as close to the body as you can, then with the other hand push the contents of the line into the JAELYN bulb). - Transfer Medications Prescriptions: Docusate Sodium [Colace] 100 mg PO BID PRN #30 capsule PRN Reason: Contstipation Cyclobenzaprine [Flexeril] 5 mg PO TID PRN 14 Days #20 tablet PRN Reason: Muscle Spasm Levofloxacin [Levaquin] 750 mg PO DAILY 4 Days #4 tablet Polyethylene Glycol 3350 [MiraLAX Powder Bulk 17.9 Oz] 1 scoop PO DAILY 30 Days #510 gm Ibuprofen [Motrin] 600 mg PO TID PRN #30 tablet PRN Reason: Mild Pain OxyCODONE/APAP 5/325 [Percocet 5/325 MG] 1 each PO Q6HR PRN 7 Days #28 tablet PRN Reason: Pain Home Medications: Atorvastatin [Lipitor] 40 mg PO HS 08/02/18 [History] Carbamide Peroxide [Ear Drops] 4 drp BOTH EARS AD 08/02/18 [History] Hydrochlorothiazide [Microzide] 12.5 mg PO DAILY 08/02/18 [History] Ketotifen Fumarate [Zaditor] 1 drp BOTH EYES BID 08/02/18 [History] LORazepam [Ativan] 0.5 mg PO DAILY 08/02/18 [History] Perphenazine 16 mg PO BID 08/02/18 [History] RisperiDONE MICROSPHERES [RisperDAL CONSTA] 25 mg IM Q14D 08/02/18 [History] risperiDONE [Risperdal] 2 mg PO HS 08/02/18 [History] Acetaminophen [Tylenol 8 Hour] 650 mg PO Q6H PRN #30 tablet.er 08/03/18 [Rx] Cyclobenzaprine [Flexeril] 5 mg PO TID PRN 14 Days #20 tablet 10/09/18 [Rx] Docusate Sodium [Colace] 100 mg PO BID PRN #30 capsule 10/09/18 [Rx] Ibuprofen [Motrin] 600 mg PO TID PRN #30 tablet 10/09/18 [Rx] Levofloxacin [Levaquin] 750 mg PO DAILY 4 Days #4 tablet 10/09/18 [Rx] OxyCODONE/APAP 5/325 [Percocet 5/325 MG] 1 each PO Q6HR PRN 7 Days #28 tablet 10/09/18 [Rx] Polyethylene Glycol 3350 [MiraLAX Powder Bulk 17.9 Oz] 1 scoop PO DAILY 30 Days #510 gm 10/09/18 [Rx] Allergies/Adverse Reactions: Allergy/AdvReac Type Severity Reaction Status Date / Time No Known Allergies Allergy Verified 10/05/18 09:38 Certification: Further, I certify that my clinical findings support that this patient is homebound (i.e. absences from home require considerable and taxing effort and are for medical reasons or taoist services or infrequently or short duration when for other reasons) because: Homebound Reason: Post-surgery restriction and or conditions limit ability to leave home, Leaving home requires considerable and taxing effort due to condition, Altered mental status requiring supervision when leaving home Attestation: My signature below is to certify that this patient is under my care and that I, or nurse practitioner, or a physician's team assistant working with me, has a [id number] encounter with this patient.
--- NOTE | 2018-10-10 12:34 | Electrocardiograph Report ---
[place] [id number] Test Date: 2018-10-09 Pat Name: Elio Tang Department: 115 Room: 3A Gender: M [employer] Glass Technician: : [id number] Requested By: Juan Luis Shaw Order Number: [id number] Reading MD: Balaji Storm Measurements Intervals Hibbs Rate: 76 P: 10 PA: 160 QRS: 25 QRSD: 91 T: 21 QT: 373 QTc: 403 Interpretive Statements SINUS RHYTHM NONSPECIFIC T-WAVE ABNORMALITY Electronically Signed On 10-10-2018 12:32:26 EDT by Balaji Storm
== END 2018-10-09 15:52 | disposition home health service (06) | DRG 414 ==
LOC: 3ANU 08:30 → SAMDAY 08:30 → SUATTDRO 17:28 → OBSVTOIN 17:28
PROVIDERS: ADMIT Surgery; ATTEND Internal Medicine